=== PATIENT | male | born 1950 | race Caucasian/White ===

== ENCOUNTER → 2020-11-21 10:13 | Outpatient (BNVA) | payer MEDICARE, BC, SELFPAY | PROVIDERS: PCP Family Medicine; Visit Provider Urology | DX: Z20.828 Contact with and (suspected) exposure to other viral communicable diseases (principal); D49.4 Neoplasm of unspecified behavior of bladder | CPT/HCPCS: 87635 ==

== ENCOUNTER 2020-11-28 16:31 | Observation (INO) | payer MEDICARE, BC, SELFPAY ==
[2020-11-27 17:02] VITALS: BMI 24.7
[2020-11-28] VITALS (12 sets, daily range): BP systolic 125–172; BP diastolic 53–105; PULSE 60–101; RESP 16–22; TEMP 36.1–36.7; O2SAT 93–100
--- NOTE | 2020-11-28 | SCC_ITS ---
Procedure Done: 1. Cystoscopy, transurethral section of bladder tumor large 2. Right ureteral stent placement (7 Albanian by 28 cm double-pigtail without string) 3. Right retrograde ureteropyelogram 18.5 seconds of fluoroscopic guidance, for a cumulative dose of 4.32 mGy, was provided to Dr. Mitchell by the radiology department. C-arm images of the abdomen were saved for the patient's permanent record. ARIAN
--- NOTE | 2020-11-28 12:56 | XR_ITS ---
WS: [id number] Chest 2 views, 11/28/2020 Clinical Data: Newly diagnosed bladder cancer Comparison: None. Findings: No nodules, masses or effusions are seen. The heart is normal. The pulmonary vascularity is not increased. No pneumonia or pneumothorax is seen. The aortic arch is minimally tortuous and calci fic. XR/XR chest 2V* 85132 Impression: Atherosclerosis.
[2020-11-28 14:09] LABS: Basophils # 0.1 10^3/uL (0.0-0.1); Basophils % 1.4 %; Eosinophils # 0.1 10^3/uL (0.0-0.8); Eosinophils % 2.7 %; Hematocrit 43.3 % (42.0-52.0); Hemoglobin 13.7 g/dL (11.7-16.6); Lymphocytes # 1.8 10^3/uL (0.8-4.8); Lymphocytes % 34.5 %; Mean Corpuscular HGB Conc 31.6 g/dL (30.0-36.0); Mean Corpuscular Hemoglobin 28.3 pg (28.0-34.0); Mean Corpuscular Volume 89.5 fL (80-94); Mean Platelet Volume 9.4 fL (7.4-10.4); Monocytes # 0.4 10^3/uL (0.2-0.9); Monocytes % 8.2 %; Nucleated Red Blood Cells % 0 %; Platelet Count 200 10^3/cmm (130-400); Red Blood Count 4.84 10^6/uL (4.1-5.3); Red Cell Distribution Width 13.6 % (12.1-15.1); White Blood Count 5.1 10^3/uL (4.0-10.0)
[2020-11-28] MEDS: sodium chloride 0.9% 1,000 ML 30 ML IV (14:12)
[2020-11-28 14:28] LABS: Alanine Aminotransferase 17 U/L (0-41); Albumin Level 4.7 g/dL (3.5-5.2); Alkaline Phosphatase 74 IU/L (40-130); Blood Urea Nitrogen 16 mg/dL (8-23); Calcium 9.1 mg/dL (8.5-10.5); Carbon Dioxide 24 mmol/L (22-29); Chloride 102 mmol/L (98-107); Glucose 103 mg/dL (65-115); Osmolality Calculated 285 mOsm/kg (285-295); Sodium 137 mmol/L (136-145); Total Bilirubin 0.4 mg/dL (0.15-1.2); Total Protein 7.7 g/dL (6.6-8.7)
--- NOTE | 2020-11-28 14:53 | P.ANESASSM_ITS ---
Pre-Anesthetic Assessment Pre-Anesthetic Assessment: Height/Weight: Height 1.82 m Weight 81.647 kg Temp Pulse Resp BP Pulse Ox 97 F L 81 18 160/65 95 11/28/20 13:34 11/28/20 13:34 11/28/20 13:34 11/28/20 13:34 11/28/20 13:34 Preop Diagnosis: Newly diagnosed bladder cancer Proposed Procedure: Operation Date: 11/28/20 14:20 Proposed Procedures p Transurethral Resection Bladder Tumor 64883 C67.0(Not Applicable) - Lucas Rossi MD s Cystoscopy(Not Applicable) - Lucas Rossi MD Was Beta Ajay taken within 24 hours: N/A Last intake: Intake Last Liquid Date 11/27/20 Last Solid Date 11/27/20 Social: Social History: No alcohol and No tobacco Exam: Pre-Anes Outpt Exam: alert, oriented x 3, clear to auscultation bilate rally and regular rate & rhythm Airway: Submandibular: WNL Cervical ROM: WNL MP: 2 Dentition: Full Pulmonary: Pulmonary: COPD Comments: h/o smoking GI: GI: GERD Anesthetic Plan: ASA status: 3 Anesthesia: General Risk of > 500 ml blood loss (7ml/kg in children): No Meds/Allergies Current Medications: Current Medications Generic Name Dose Route Start Last Admin Trade Name Freq PRN Reason Stop Dose Admin Sodium Chloride 1,000 mls @ 30 ml s/hr 11/28/20 13:00 11/28/20 14:12 Sodium Chloride 0.9% IV 11/29/20 12:59 30 mls/hr .Q24H CHRIS Administration PFSH Anesthesia PFSH: Medical History Arthritis Cancer of trigone of urinary bladder Chronic GERD Hypercholesterolemia Family History Father , at age 79 CHF (congestive heart failure) Mother , at age 92 Heart disease Social History Smoking and tobacco status: former smoker Alcohol intake: never Marital status: Current occupational status: retired History of recent travel: No Data Anesthesia CBC & Chem 7: 11/28/20 13:40 11/28/20 13:40 Other Labs: Laboratory Results - last 48 hr 11/28/20 11/28/20 13:40 13:40 WBC 5.1 RBC 4.84 Hgb 13.7 Hct 43.3 MCV 89.5 MCH 28.3 MCHC 31.6 RDW 13.6 Plt Count 200 MPV 9.4 Neut % (Auto) 53.0 Lymph % (Auto) 34.5 [place] % (Auto) 8.2 Eos % (Auto) 2.7 Baso % (Auto) 1.4 Neut # (Auto) 2.70 Lymph # (Auto) 1.8 [place] # (Auto) 0.4 Eos # (Auto) 0.1 Baso # (Auto) 0.1 Nucleated RBC % (auto) 0 Nucleated RBCs # 0.0 Sodium 137 Chloride 102 Carbon Dioxide 24 BUN 16 Creatinine 1.2 GFR Calculation Not Reportable Glucose 103 Calculated Osmolality 285 Calcium 9.1 Total Bilirubin 0.4 ALT 17 Alkaline Phosphatase 74 Total Protein 7.7 Albumin 4.7 Globulin 3.0 Cardiac Studies: No Data to Display
--- NOTE | 2020-11-28 14:57 | P.HPUD_ITS ---
Surgery/Procedure H&P Update DATE OF PROCEDURE: November 28, 2020 DATE H&P PERFORMED: 11/07/21 H&P UPDATE INFORMATION: I have reviewed H&P completed within last 30 days, I have examined patient prior to procedure, No changes to prior documentation and H&P is in [facility] EMR on date indicated PREOP DIAGNOSIS: Newly diagnosed bladder cancer PLANNED PROCEDURE: Operation Date: 11/28/20 14:20 Proposed Procedures p Transurethral Resection Bladder Tumor 74043 C67.0(Not Applicable) - Lucas Rossi MD s Cystoscopy(Not Applicable) - Lucas Rossi MD
[2020-11-28] MEDS: lidocaine 2% Urojet 20 mL XX (15:16)
[2020-11-28 15:53] LABS: Anion Gap 15.7 (5-19); Aspartate Amino Transferase 29 U/L (0-40); Potassium 4.7 mmol/L (3.5-5.1)
--- NOTE | 2020-11-28 16:13 | SC_ITS ---
WS: [id number] C-arm fluoroscopy of the left side of the abdomen for retrograde pyelogram, 11/28/2020 Clinical Data: retrograde Comparison: None. Findings: A retrograde pyelogram was performed by Dr. Rossi. SC/C-arm [place] for Urology Impression: Left retrograde pyelogram.
[2020-11-28] MEDS: iohexol 300 mg/mL 50 mL Btl XX (16:15)
--- NOTE | 2020-11-28 16:32 | PM.OP ---
Operative Report Date of procedure: November 28, 2020 Pre-op Diagnosis: Newly diagnosed bladder cancer Post-op diagnosis: same Procedure Done: 1. Cystoscopy, transurethral section of bladder tumor large 2. Right ureteral stent placement (7 Salvadorean by 28 cm double-pigtail without string) 3. 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 >5 cm diameter resected/fulgurated. Condition: stable Disposition: PACU Brief History: Link is a very pleasant 70-year-old white male recently diagnosed during work-up for gross hematuria with papillary transitional cell carcinoma involving the left lateral wall and left trigone. The right ureteral orifice could be identified is normal the left was not seen and appeared to be underneath the tumor. No renal colicky type symptoms. Admitted for TURBT. Procedure: After routine preoperative evaluation examination and obtaining of informed consent he was taken to the operating suite on 11/28/2020 where general anesthesia was administered without difficulty after appropriate timeout was performed, SCDs confirmed to be functioning, preoperative antibiotics administered, beta-graeme protocol confirmed. Prepped and draped in the usual sterile fashion in dorsolithotomy position paying careful attention to avoiding pressure points. 21 Salvadorean cystoscope with 30 degree lens was introduced into the urethra meatus and advanced into the bladder under videoscopy. The bladder was systematically examined. Findings described above. The right ureteral orifice was somewhat laterally displaced with a fishmouth type appearance the left ureteral orifice could not be seen and appeared to be located underneath the tumor. The urethra was then calibrated with Slava sounds and easily accommodated 30 Salvadorean. 2% lidocaine jelly was instilled into the urethra and a 25 Salvadorean continuous-flow resectoscope sheath with visual obturator in place was advanced into the bladder without difficulty. The gyrus bipolar system with cutting loop was utilized for tumor resection. All visible tumor was resected deeply into the bladder wall. The left ureteral orifice was not readily identified. Cauterization was not utilized until the left ureteral orifice was finally identified after injection of indigo carmine intravenously along with Lasix showed some blue staining of the left lateral wall. A flexible tip guidewire was then passed through the cystoscope and the area of blue staining was probed with the wire in the ureteral orifice was identified with efflux of blue contrast. The wire was advanced and under fluoroscopic guidance appear to be in the appropriate position for the ureter and renal pelvis. A open-ended ureteral catheter was then advanced over the guidewire and the guidewire removed and contrast was injected and fluoroscopy revealed intraluminal normal placement with some mild dilation. The guidewire was replaced through the ureteral catheter and the catheter was removed. A 7 Salvadorean by 28 cm double-pigtail stent without string was advanced over the guidewire through the cystoscope into appropriate position as confirmed via fluoroscopy and cystoscopy. Ureteral stent was confirmed to be draining appropriately. The Bugbee cautery probe was then utilized to fulgurate few small areas of oozing from the resection site and after confirmation of meticulous hemostasis of the procedure was completed. Bladder drained with a 20 Salvadorean three-way Robledo catheter 30 in the balloon. Light CBI was initiated and urine remained clear. Tolerated procedure well without complications and awakened in the operating room and returned to the care of room in stable condition. PLANS: 1. Admit to observation status on the floor 2. Intravesical mitomycin tomorrow morning 3. Anticipate discharge with Robledo catheter and for assistance with healing and removal with voiding trial in the office next week.
[2020-11-28] MEDS: meperidine 50 mg/mL INJ 12.5 MG IVP (16:35)
--- NOTE | 2020-11-28 16:52 | SUR.PHASEI ---
PT RESTING QUIETLY WITH GOOD RESP NOTED PT STILL SHIVERS OFF AND ON BUT IS MOSTLY QUIET SEE EARLIER MED GIVEN FOR URGENCY AND SHIVERING WARM BLANKETS GIVEN X 3 TO PT ON ADMIT. GOLDSMITH IS 3 WAY WITH CONTINOUS NS CBI AT MOD RATE URINE IS BLUE IN BAG AND LT PINK IN TUBING.
--- NOTE | 2020-11-28 17:07 | ANE.PACU2 ---
Inpatient post-anesthesia follow up: Airway intact: Yes Vital signs: Temperature 98.1 F Pulse Rate 65 Respiratory Rate 16 Blood Pressure 161/56 Pulse Oximetry 96 Oxygen Delivery Me thod Room Air Oxygen Flow Rate 8 Fraction of Inspir ed Oxygen Hydration adequate: Yes Nausea and vomiting: No Pain level: 2 Mental status: Baseline
[2020-11-28] MEDS: tamsulosin 0.4 mg Capsule PO (18:05)
[2020-11-28] MEDS: gabapentin 300 mg Capsule 600 MG PO ×2 (18:05→21:18)
[2020-11-28] MEDS: HYDROcodone-acetaminophen 10-325 mg Tablet 1 TAB PO (18:05)
[2020-11-29] VITALS: BP 161/67; PULSE 71; RESP 16; TEMP 36.5; O2SAT 92
[2020-11-29] MEDS: HYDROcodone-acetaminophen 10-325 mg Tablet 1 TAB PO (02:43)
[2020-11-29 04:00] VITALS: BP 170/71; PULSE 71; RESP 16; TEMP 37; O2SAT 94
--- NOTE | 2020-11-29 06:47 | PC.NURSE ---
THROUGHOUT THE SHIFT THE FLOW OF THE CBI WAS TITRATED ACCORDING TO THE APPEARANCE OF THE GOLDSMITH BAG CONTENTS. FOR THE MAJORITY THE CONTENTS WERE A LIGHT PINK TO PINK/YELLOW COLOR. THE PATIENT DENIED PAIN, EXCEPT C/O PRESSURE X1.
[2020-11-29 07:08] VITALS: BP 158/88; PULSE 68; RESP 16; TEMP 36.5; O2SAT 94
--- NOTE | 2020-11-29 07:32 | P.DS_ITS ---
Discharge Providers Date of Admission: 11/28/20 16:31 Date of Discharge: November 29, 2020 Attending Provider at Admission: Lucas Rossi MD Attending Provider at Discharge: Lucas Rossi MD Primary Care Provider: Abhinav Torresno Diagnoses at Discharge Discharge Diagnosis (1) Cancer of trigone of urinary bladder: Status: Acute (2) Hydronephrosis, left: Status: Acute (3) Retained ureteral stent: Status: Acute Reason for Visit Reason for Visit: cystoscopy Hospital Course Hospital Course He was admitted on the day of the procedure which went well. He had a large papillary tumor involving the left ureteral orifice which was resected. A stent was left indwelling to allow appropriate healing. On postoperative day #1 he underwent mitomycin instillation into the bladder for 1 hour and it was drained. Urine cleared appropriately and he was discharged later that morning with Robledo catheter remaining in place to facilitate further healing and plans to remove the catheter the following week. Discharged in stable condition. Physical Exam Const: COMMON NORMALS: no acute distress and alert Resp: COMMON NORMALS: normal respiratory effort EFFORT & INSPECTION: No tachypneic and No respiratory distress : BLADDER/KIDNEY EXAM: Yes bladder normal to palpation PENIS: normal penis MEATUS: meatus normal Neuro: SENSORIUM/ORIENTATION: Yes alert Psych: COMMON NORMALS: mental status grossly normal, Normal thought process present and cooperative ATTITUDE: Yes calm and Yes engaged THOUGHT PROCESS: Normal thought process present Urinary Catheter Management^: 3-way Urethral CBI: Cath Placed During This Visit: yes Reason for Continuing Indwelling Catheter: Accurate Measurement of Urinary Ou tput in Critically Ill Patients Urinary Catheter Date of Insertion: 11/28/20 Urinary Catheter Time of Insertion: 16:00 Discharge Data Data Completed and Pending: Completed Studies During Hospitalization Category Date Time Status XR chest 2V* 7104 6 Routine Exams 11/28/20 12:56 Completed Pending at discharge Category Date Time Status Pathology: Surgic al [PTH] Routine Pth 11/28/20 16:32 Ordered Labs from last 24 hours 11/28/20 11/28/20 13:40 13:40 WBC 5.1 RBC 4.84 Hgb 13.7 Hct 43.3 MCV 89.5 MCH 28.3 MCHC 31.6 RDW 13.6 Plt Count 200 MPV 9.4 Neut % (Auto) 53.0 Lymph % (Auto) 34.5 [place] % (Auto) 8.2 Eos % (Auto) 2.7 Baso % (Auto) 1.4 Neut # (Auto) 2.70 Lymph # (Auto) 1.8 [place] # (Auto) 0.4 Eos # (Auto) 0.1 Baso # (Auto) 0.1 Nucleated RBC % (a uto) 0 Nucleated RBCs # 0.0 Sodium 137 Potassium 4.7 Chloride 102 Carbon Dioxide 24 Anion Gap 15.7 BUN 16 Creatinine 1.2 GFR Calculation Not Reportable Glucose 103 Calculated Osmolal ity 285 Calcium 9.1 Total Bilirubin 0.4 AST 29 ALT 17 Alkaline Phosphata se 74 Total Protein 7.7 Albumin 4.7 Globulin 3.0 Procedures Performed: Intravesical mitomycin instilled into the bladder on postop day #1 Vitals: Last Vital Signs Temp 97.7 F 11/29/20 07:08 Pulse 68 11/29/20 07:08 Resp 16 11/29/20 07:08 BP 158/88 11/29/20 07:08 Pulse Ox 94 11/29/20 07:08 Discharge Plan Discharge Patient Disposition: Home Condition: Stable Prescriptions: Continued sertraline 100 mg tablet 100 mg PO DAILY RF: 0 lovastatin 40 mg tablet 40 mg PO DAILY RF: 0 gabapentin 300 mg capsule 600 mg PO TID RF: 0 hydrocodone-acetaminophen 10-325 mg tablet 1 tab PO BID PRN (Reason: pain) RF: 0 tamsulosin 0.4 mg capsule 0.4 mg PO BID RF: 0 omeprazole 40 mg capsule,delayed release(DR/EC) 40 mg PO DAILY RF: 0 Held meloxicam 15 mg tablet 15 mg PO DAILY RF: 0 Hold Instructions: Resume on 12/06/20. Discharge Orders: Discharge Order (Routine); Ordered 11/29/20 Ordered By: Lucas Rossi Referrals: Lucas Rossi MD [Physician] - 12/03/20 11:00 am Discharge Diet: Usual diet Discharge Activity: Limit activity as instructed Patient Instructions: Cystoscopy, Robledo Catheter Care, Transurethral Resection of Bladder Tumors (DC), Ureteral Stent Placement (DC), Urinary Leg Bag (GEN) Activity Restrictions/Additional Instructions: 1. No lifting >10 pounds for 3 weeks 2. We will remove the catheter in my office on Wednesday the . 3. You have a ureteral stent in the left kidney which will allow the tube where it drains into the bladder to heal. We will probably leave that in for 2 to 3 weeks for that purpose. 4. He can use a leg bag and night bag to drain the Robledo catheter until you return to clinic for catheter removal. At that visit we will train you on how to self catheterize to avoid over distention of your bladder. Discharge Attestations Time Spent in Discharge Care*: greater than 30 min Quality Metrics Clinical Quality Measures During this hospital stay, did patient experience: None Coding Level of Care Code Acute Community Marketing Coordinator for Lisa Fwd Exam Expanded Problem Focused Diagnoses Cancer of trigone of urinary bladder C67.0 Hydronephrosis, left N13.30 Retained ureteral stent Z96.0
[2020-11-29] MEDS: gabapentin 300 mg Capsule 600 MG PO (08:11)
[2020-11-29] MEDS: pantoprazole DR 40 mg Tablet PO (08:11)
[2020-11-29] MEDS: tamsulosin 0.4 mg Capsule PO (08:11)
[2020-11-29] MEDS: atorvastatin 40 mg Tablet 20 MG PO (08:11)
--- NOTE | 2020-11-29 11:16 | PC.CHAP ---
Pastoral Care Encounter/Spiritual Assessment Type of Contact [] Declined superintendent measurement visit [] Patient/Family/Request visit [] Outpatient visit [] Follow-up visit [] Physician referral [] Code/Alert [xx] Routine visit [] Staff referral [] Actively dying [] Patient sleeping [] Family support [] [] Out of room [] Palliative care [] [] Receiving care in room [] Pre-surgical visit [] Trauma [] Long length of stay [] ICU visit [] Other: Relational/Emotional Strength [xx] Patient feels connected with others/family/visitors/staff [] Distress [] Loneliness/isolation [] Abandonment Spirituality of Patient [] Person of Hannah [] Attends Moravian of their Hannah [xx] Believes in Prayer [xx] Reads Bible or Confucianist materials [] There are Spiritual issues to be addressed Wet Cleaner Machine Interventions [xx] Prayer [xx] Active listening [xx] Non-anxious presence [] Spiritual/emotional support [] Crisis/trauma care [] Spiritual counseling [] Bereavement support [] Provided bereavement packet [xx] Provided Bible/devotional materials [] Provided toy/stuffed animal, coloring book to patient or family member [] Provided Communion [] Anointing/[place] [] Salvation [xx] Completed spiritual assessment [] Other: Impact on Illness or Injury [] Angry [] Fearful [] Anxious [] Often cries [] Exhaustion [] Unable to work [] Unable to attend caodaism [] Unable to walk/stand [] Unable to read [] Unable to drive [] Unable to eat/drink [] Unable to sleep [] Unable to be with family [] Patient intubated [] Other: Summary Patient being discharged. He accepted [employer] devotional to take home. Time spent with patient 4 minutes
[2020-11-29 12:41] VITALS: BP 158/88; PULSE 68; RESP 16; TEMP 36.5; O2SAT 94
== END 2020-11-29 11:00 | disposition home or self-care (01) ==
LOC: MEDSURG 16:31
PROVIDERS: Admitting Provider Urology; PCP Family Medicine; Visit Provider Urology
PROC: 0TBB8ZZ Excision of Bladder, Via Natural or Artificial Opening Endoscopic (ICD-10-PCS; CPT 52240; principal; 2020-11-28 14:20)
PROC: 0TJB8ZZ Inspection of Bladder, Via Natural or Artificial Opening Endoscopic (ICD-10-PCS; CPT 52000; 2020-11-28 14:20)
PROC: (CPT 74420; 2020-11-28 14:20)
DX: C67.0 Malignant neoplasm of trigone of bladder (principal); N13.30 Unspecified hydronephrosis; J44.9 Chronic obstructive pulmonary disease, unspecified; Z87.891 Personal history of nicotine dependence; K21.9 Gastro-esophageal reflux disease without esophagitis; M19.90 Unspecified osteoarthritis, unspecified site; E78.00 Pure hypercholesterolemia, unspecified; Z82.49 Family history of ischemic heart disease and other diseases of the circulatory system
CPT/HCPCS: 51720; 52240; 52332; 12345; 36415; 71046; 76000; 80053; 85025; 88305; G0378; J0690; J1940; J2175; J2704; J2710; J3010; J3490; J7030; J9280; Q9967

== ENCOUNTER 2020-12-13 09:54 | Outpatient (CLI) | payer MEDICARE, BC, SELFPAY ==
--- NOTE | 2020-12-13 10:00 | CT_ITS ---
WS: [id number] CT ABDOMEN PELVIS TECHNIQUE: Noncontrast CT of the abdomen and contrast-enhanced CT of the abdomen and pelvis with edvin nal and sagittal reformatted images. CLINICAL INFORMATION: CANCER OF TRIGONE OF URINARY BLADDER COMPARISON: November 06, 2020 DLP: 1046.[address] scans at [facility] use at least one of these dose optimization techniques: automat ed exposure control; mA and/or kV adjustment per patient size (includes targeted exams where dose is matched to clinical indication); or iterative reconstruction. FINDINGS:Adrenal glands are normal. Normal renal parenchymal enhancement. No hydronephrosis. Left heather ble-J ureteral stent. Left eccentric bladder wall thickening with recent bladder surgery. Previous de scribed polypoid lesions no longer visualized. No new or recurrent enhancing polypoid bladder lesions . Prostate measures 3.1 x 5.0 CM. Fibrotic opacity right lower lobe medially unchanged since November 06, 2020 measuring 9 mm. Lung bas es are otherwise well aerated. Mild diffuse fatty infiltration of the liver. Portal vein and splenic vein are normal. Normal gallbladder. Normal GE junction. Normal spleen. Mild fatty atrophy of the oswald creas Normal caliber abdominal aorta. Aortic calcification. Sigmoid diverticuli. No evidence of acute diver ticulitis. No periaortic or retroperitoneal lymphadenopathy. No inguinal lymphadenopathy. Moderate spondylitic c hanges lumbar spine. CT/CT abdomen pelvis wo/w [id number] IMPRESSION: 1. Left double-J ureteral stent in good position. No hydronephrosis. 2. Normal bilateral renal [place] enhancement. 3. Mild left eccentric bladder wall thickening. The previously described enhan cing polypoid lesions appear to have been resected. No new polypoid lesions. 4. Mild diffuse fatty infiltration of the liver. 5. Stable fibrotic opacity right lower lobe medially measuring 9 mm. Recommend 3 month follow-up. 6. No abdominal or pelvic lymphadenopathy.
[2020-12-13] MEDS: iodixanol 320 mg/mL 100mL Btl IV (10:25)
== END 2020-12-13 09:55 | disposition home or self-care (01) ==
LOC: RAD 10:03
PROVIDERS: PCP Family Medicine; Visit Provider Urology
DX: C67.0 Malignant neoplasm of trigone of bladder (principal); Z96.0 Presence of urogenital implants; K76.0 Fatty (change of) liver, not elsewhere classified
CPT/HCPCS: 74178

== ENCOUNTER → 2020-12-17 08:54 | Outpatient (BNVA) | payer MEDICARE, BC, SELFPAY | PROVIDERS: PCP Family Medicine; Visit Provider Urology | DX: C67.0 Malignant neoplasm of trigone of bladder (principal); N13.30 Unspecified hydronephrosis | CPT/HCPCS: 81003 ==

== ENCOUNTER 2020-12-23 10:10 | Outpatient (CLI) | payer MEDICARE, BC, SELFPAY ==
[2020-12-23 12:12] LABS: Basophils # 0.1 10^3/uL (0.0-0.1); Basophils % 1.2 %; Eosinophils # 0.2 10^3/uL (0.0-0.8); Eosinophils % 4.9 %; Hemoglobin 13.1 g/dL (11.7-16.6); Lymphocytes # 1.7 10^3/uL (0.8-4.8); Lymphocytes % 34.3 %; Mean Corpuscular HGB Conc 31.2 g/dL (30.0-36.0); Mean Corpuscular Volume 89.7 fL (80-94); Mean Platelet Volume 9.3 fL (7.4-10.4); Monocytes # 0.4 10^3/uL (0.2-0.9); Monocytes % 8.5 %; Neutrophils # 2.51 10^3/uL (1.8-7.7); Neutrophils % 50.9 %; Nucleated Red Blood Cells % 0 %; Platelet Count 195 10^3/cmm (130-400); Red Blood Count 4.68 10^6/uL (4.1-5.3); Red Cell Distribution Width 13.6 % (12.1-15.1); White Blood Count 4.9 10^3/uL (4.0-10.0)
[2020-12-23 12:30] LABS: Alanine Aminotransferase 15 U/L (0-41); Albumin Level 4.4 g/dL (3.5-5.2); Alkaline Phosphatase 71 IU/L (40-130); Anion Gap 10.7 (5-19); Aspartate Amino Transferase 19 U/L (0-40); Blood Urea Nitrogen 13 mg/dL (8-23); Calcium 8.8 mg/dL (8.5-10.5); Carbon Dioxide 27 mmol/L (22-29); Chloride 105 mmol/L (98-107); Globulin 2.7 g/dL (1.3-4.6); Glucose 109 mg/dL (65-115); Osmolality Calculated 289 mOsm/kg (285-295); Potassium 3.7 mmol/L (3.5-5.1); Sodium 139 mmol/L (136-145); Total Bilirubin 0.3 mg/dL (0.15-1.2); Total Protein 7.1 g/dL (6.6-8.7)
--- NOTE | 2020-12-23 14:37 | ONC CON_ITS ---
Dr. Art New Patient Note Patient: Link Rollins Unit #: [id number]: [id number] Dicatated By: Kriss Art M.D.Date of Visit: Dec 23, 2020 Onc MED New Patient/Consult Referring Physician: Rj Watters History of Present Illness: Mr. Link Fink, is a 70-year-old gentleman with history of hematuria, initially observed on a day before [place] eve, went to [facility] in [place], [place] CT scan of abdomen pelvis showed an enhancing mass in the left posterior aspect of urinary bladder consistent with bladder cancer, his CBC showed hemoglobin 13.6 and creatinine was 1.08 Subsequently, he was referred to urology, Dr. 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 Patient underwent CT scan of abdomen pelvis on December 13, 2020 which showed left double-J ureteral stent, no hydronephrosis mild left eccentric bladder wall thickening. Mild diffuse fatty infiltration of the liver. Stable fibrotic opacity right lower lobe of lung medially measuring 9 mm. Unchanged since November 06, 2020, no pelvic lymphadenopathy Past medical history significant for arthritis, chronic GERD, hypercholesterolemia, patient is a former smoker quit smoking 35 years ago denies alcohol use. , Complaining of off and on hematuria since underwent surgery for bladder cancer. Otherwise denies any fever chills denies any nausea or vomiting, about 10 pound weight loss due to poor appetite. No melena or hematochezia, no hemoptysis hematemesis, no jaundice, no bony pains, no dysuria.As per patient Dr. Centeno from [place], [place] called him on Wednesday and did discuss with him regarding treatment options which include radical cystectomy but prior to that he recommended chemotherapy. Past Medical History: Mr. King medical history consists of arthritis, gastroesophageal reflux disease, and hypercholesterolemia. Past Surgical History: Mr. King surgical/procedural history consists of transurethral destruction of bladder lesion. Medications: Daily Vitamin 1 Tablet Oral daily, Gabapentin 1 Capsule (of 300 mg) Oral t.i.d., HYDROcodone-Acetaminophen 1 Tablet (of 10-325 mg) Oral four times a day, Lovastatin 1 Tablet (of 40 mg) Oral daily, Meloxicam 1 Tablet (of 15 mg) Oral daily, Omeprazole 1 Capsule (of 40 mg) Capsule Delayed Release Oral daily, Sertraline HCl 1 Tablet (of 100 mg) Oral daily, Tamsulosin HCl 1 Capsule (of 0.4 mg) Oral b.i.d. Allergies: No Known Allergies. Social History: Mr. Rollins is . Mr. Rollins no longer smokes. He has no history of drinking. Family History: Mr. Rollins's mother at age 92: heart disease. Mr. Rollins's father at age 79: congestive heart failure. Review Of Symptoms: Constitutional - Appetite is good and weight is stable. No fever, night sweats, or hot flashes. Energy level is poor, ENMT - No sinus congestion/drainage. No mouth sores. No sore throat or difficulty swallowing, Hematologic/Lymphatic - No abnormal bruising or bleeding, Respiratory - No shortness of breath. No cough. No pleuritic pain or hemoptysis, Cardiovascular - No angina pain. No palpitations, Gastrointestinal - No nausea or vomiting. Positive for heartburn and acid reflux. No diarrhea or constipation. No blood in the stool or black stools, Genitourinary (M) - Positive for dysuria, no hematuria. Positive for urinary frequency. No urgency or incontinence, Musculoskeletal - Positive for joint and bone pain, Neurologic - No headache. Positive for dizziness. No numbness or tingling. No other focal neurologic symptoms, Psychiatric - No anxiety or depression. Positive for insomnia. Vital Signs: Most recent vitals are not available for this patient. Performance Status: 0 - Fully active, able to carry on all predisease activities without restrictions. (ECOG) Physical Examination: ENMT - No mouth sores, no thrush, no jaundice, Respiratory - Lungs are clear to auscultation, Cardiovascular - Regular rate and rhythm of heart, Abdomen - Soft, bowel sounds present, Extremities - No visible edema. Lab/Imaging: Most recent lab results are not available for this patient. Impression: Muscle invasive, high-grade urothelial carcinoma involving detrusor muscle, carcinoma in situ identified per TURBT done on November 28, 2020 CT scan of abdomen pelvis done on December 13, 2020 showed no abdominal or pelvic lymphadenopathy mild left central bladder wall thickening.Clinical stage T2or3,, NX, MX Stable fibrotic opacity right lower lobe of lung medially measuring 9 mm Arthritis GERD Plan: Discussed with patient regarding treatment options, which include neoadjuvant chemotherapy with dose dense MVAC 3-4 cycles followed by radical cystectomy or combined chemoradiation therapy as bladder preservation therapy, patient is less likely a candidate for bladder preservation because of left hydronephrosis at the time of diagnosis requiring stenting and high-grade urothelial carcinoma, multifocal disease, presence of DCIS, with all these features mentioned the standard of care for this patient would be neoadjuvant chemotherapy with dose dense MVAC with Neulasta support x3 followed by evaluation For radical cystectomy, patient and his agreed with the plan. At this point , we will obtain baseline CBC ,CMP, pretreatment echocardiogram, Port-A-Cath placement, all the side effect possible benefits associated with dose dense MVAC including but not limited to, bone marrow suppression, hair loss, nausea vomiting diarrhea, mouth sores, hepatic toxicity, bladder toxicity, peripheral neuropathy, cardiac toxicity were mentioned, further teaching will done by chemotherapy nurse, will obtain approval from his insurance prior to the treatment and then patient will return to clinic 1 week after first dose of MVAC with Neulasta support to prevent chemotherapy-induced neutropenia/leukopenia and to maintain chemotherapy schedule, with CBC CMP Signed By: Kriss Art M.D. <<Signature on File>>
== END 2020-12-23 10:11 | disposition home or self-care (01) ==
PROVIDERS: PCP Family Medicine; Visit Provider Internal Medicine Hematology & Oncology
DX: C67.0 Malignant neoplasm of trigone of bladder (principal); M19.90 Unspecified osteoarthritis, unspecified site; K21.9 Gastro-esophageal reflux disease without esophagitis
CPT/HCPCS: 80053; 85025; 99204

== ENCOUNTER 2021-01-09 08:05 | Outpatient (CLI) | payer MEDICARE, BC, SELFPAY ==
--- NOTE | 2021-01-09 08:14 | USCV_ITS ---
Link Rollins Age: 70 Gender: M : 1950 Exam Date: 01/09/2021 08:35 Ordering Phys: Kriss Art MD Technologist: Emilio Madrigal Exam Location: [facility] [place] Indication: HIGH RISK MED BP: 130 / 75 HR: 67 Rhythm: Sinus Technical Quality: Fair MEASUREMENTS (Male / Female) Normal Values 2D ECHO LV Diastolic Diameter PLAX 3.9 cm 4.2 - 5.9 / 3.9 - 5.3 cm LV Systolic Diameter PLAX 2.8 cm IVS Diastolic Thickness 1.6 cm 0.6 - 1.0 / 0.6 - 0.9 cm IVS Systolic Thickness 1.6 cm LVPW Diastolic Thickness 1.1 cm 0.6 - 1.0 / 0.6 - 0.9 cm LVPW Systolic Thickness 1.4 cm LVOT Diameter 2.1 cm LV Ejection Fraction 2D Teich 52.7 % LV Ejection Fraction MOD 2C 60.6 % LV Ejection Fraction 2C AL 59.4 % LA Diameter 4.0 cm LA Width 3.6 cm LA Height 4.1 cm RA Width 3.4 cm RA Height 4.8 cm Aorta at Sinotubular Diameter 3.1 cm M-MODE LV Diastolic Diameter MM 5.2 cm 4.2 - 5.9 / 3.9 - 5.3 cm LV Systolic Diameter MM 3.2 cm LV Ejection Fraction MM Teich 69.4 % IVS Diastolic Thickness MM 1.0 cm 0.6 - 1.0 / 0.6 - 0.9 cm IVS Systolic Thickness MM 1.6 cm LVPW Diastolic Thickness MM 1.1 cm 0.6 - 1.0 / 0.6 - 0.9 cm LVPW Systolic Thickness MM 2.1 cm RV Diastolic Diameter MM 2.5 cm Aortic Annulus Diameter 3.9 cm LA Ao Ratio MM 1.1 MV E Point Septal Separation 0.9 cm DOPPLER AV Peak Velocity 126.0 cm/s LVOT Peak Velocity 81.0 cm/s AV Area Cont Eq vti 2.4 cm squared AV Area Cont Eq pk 2.2 cm squared MV Area PHT 5.0 cm squared Mitral E to A Ratio 0.8 MV E' Velocity 59.0 cm/s TR Peak Velocity 173.0 cm/s TR Peak Gradient 12.0 mmHg TV Peak E Velocity 94.0 cm/s Right Atrial Pressure 3.0 mmHg Pulmonary Artery Systolic Pressu 15.0 mmHg PV Peak Velocity 104.0 cm/s FINDINGS Left Ventricle Normal left ventricular size, systolic function and wall thickness, with no regional wall motion abnormalities. Left ventricular ejection fraction is estimated at 60 %. Normal diastolic filling pattern. Right Ventricle Normal right ventricular size and systolic function. Right ventricular systolic pressure 15 mmHg. Right Atrium Normal right atrial size. Left Atrium Normal left atrial size. Mitral Valve Structurally normal mitral valve. No mitral valve stenosis. No mitral valve regurgitation. Aortic Valve Structurally normal trileaflet aortic valve. No aortic valve stenosis. No aortic valve regurgitation. Tricuspid Valve Structurally normal tricuspid valve. Trace tricuspid valve regurgitation. Pulmonic Valve Pulmonic valve not well visualized. Pericardium No pericardial effusion. Aorta Normal-sized aortic root. CONCLUSIONS 1. Normal left ventricular size, systolic function and wall thickness, with no regional wall motion abnormalities. Left ventricular ejection fraction is estimated at 60 %. Normal diastolic filling pattern. 2. Normal right ventricular size and systolic function. 3. Normal pulmonary artery pressure. 4. No significant valvular abnormality. 5. No prior similar studies to compare. Louise Gunter MD (Electronically Signed) Final Date: 13 January 2021 14:41 S
== END 2021-01-09 08:06 | disposition home or self-care (01) ==
LOC: US 08:06
PROVIDERS: PCP Family Medicine; Visit Provider Internal Medicine Hematology & Oncology
DX: Z79.899 Other long term (current) drug therapy (principal)
CPT/HCPCS: 93306

== ENCOUNTER → 2021-01-13 10:01 | Outpatient (BNVA) | payer MEDICARE, BC, SELFPAY | PROVIDERS: PCP Family Medicine; Visit Provider Surgery | DX: Z20.822 Contact with and (suspected) exposure to COVID-19 (principal); C67.0 Malignant neoplasm of trigone of bladder | CPT/HCPCS: 87635 ==

== ENCOUNTER 2021-01-20 07:39 | Day surgery (SDC) | payer MEDICARE, BC, SELFPAY ==
[2021-01-16 14:20] VITALS: BMI 23.6
--- NOTE | 2021-01-20 | SCC_ITS ---
Procedure Done: Placement of PowerPort via right subclavian vein. 46.0 seconds of fluoroscopic guidance, for a cumulative dose of 11.26 mGy, was provided to Dr. Hayes by the radiology department. C-arm images of the chest were saved for the patient's permanent record. [facility]
--- NOTE | 2021-01-20 07:46 | SC_ITS ---
WS: [id number] INTRAOPERATIVE TECHNIQUE: 2 Spot fluoroscopic images for intraoperative purposes. FLUOROSCOPY TIME: 46.0 seconds CLINICAL INFORMATION: Powerport Placement COMPARISON: None. FINDINGS: Right Port-A-Cath with tip in distal SVC. No visualized pneumothorax. SC/C-arm FL for CVA [id number] IMPRESSION: Images obtained for intraoperative purposes.
[2021-01-20] MEDS: sodium chloride 0.9% 1,000 ML 30 ML IV (08:27)
--- NOTE | 2021-01-20 08:37 | ANES.PREANE2 ---
Pre-Anesthetic Assessment Pre-Anesthetic Assessment: Height/Weight: Height 1.83 m Weight 78.925 kg Preop Diagnosis: Urinary bladder cancer Proposed Procedure: Operation Date: 01/20/21 09:20 Proposed Procedures p PLACEMENT OF PORT A CATH 58846 c67.0(Not Applicable) - Kun Hayes MD Was Beta Ajay taken within 24 hours: N/A Last intake: Intake Last Liquid Date 01/20/21 Last Liquid Time 06:00 Last Solid Date 01/19/21 Last Solid Time 21:00 Social: Social History: No alcohol and No tobacco Comment: h/o smoking Exam: Pre-Anes Outpt Exam: alert, oriented x 3, clear to auscultation bilaterally and regular rate & rhythm Airway: Submandibular: WNL Cervical ROM: WNL MP: 2 Dentition: Full Pulmonary: Pulmonary: COPD : Comments: Bladder tumor GI: GI: GERD Anesthetic Plan: ASA status: 3 Anesthesia: MAC Risk of > 500 ml blood loss (7ml/kg in children): No Meds/Allergies Current Medications: Current Medications Generic Name Dose Route Start Last Admin Trade Name Freq PRN Reason Stop Dose Admin Sodium Chloride 1,000 mls @ 30 ml s/hr 01/20/21 08:15 01/20/21 08:27 Sodium Chloride 0.9% IV 01/21/21 08:14 30 mls/hr .Q24H CHRIS Administration PFSH Anesthesia PFSH: Medical History Arthritis Cancer of trigone of urinary bladder Chronic GERD Hypercholesterolemia Surgical History H/O transurethral destruction of bladder lesion Family History Father , at age 79 CHF (congestive heart failure) Mother , at age 92 Heart disease Social History Smoking and tobacco status: former smoker Alcohol intake: never Marital status: Current occupational status: retired History of recent travel: No Data Anesthesia Cardiac Studies: No Data to Display
--- NOTE | 2021-01-20 09:45 | W.PM.OPSUD ---
Surgery/Procedure H&P Update DATE OF PROCEDURE: January 20, 2021 DATE H&P PERFORMED: 01/13/21 H&P UPDATE INFORMATION: I have reviewed H&P completed within last 30 days, I have examined patient prior to procedure and No changes to prior documentation PREOP DIAGNOSIS: Urinary bladder cancer PRIMARY INDICATION FOR PROCEDURE: THE SAME PLANNED PROCEDURE: Operation Date: 01/20/21 09:20 Proposed Procedures p PLACEMENT OF PORT A CATH 93010 c67.0(Not Applicable) - Kun Hayes MD
[2021-01-20] MEDS: lidocaine 2% INJ 20 mL INJECTION (10:25)
[2021-01-20] MEDS: heparin, porcine 1,000 unit/mL INJ 10 mL 10000 UNIT IRRIGATION (10:29)
--- NOTE | 2021-01-20 10:38 | PM.OP ---
Operative Report Date of procedure: January 20, 2021 Pre-op Diagnosis: Urinary bladder cancer Post-op diagnosis: same Post-op Findings: Normal anatomy of right subclavian vein Procedure Done: Placement of PowerPort via right subclavian vein. Interpretation of fluoroscopy was done by me through the whole entire procedure Implants: Right subclavian vein PowerPort Surgeon: Kun Hayes Community Coordinator For [employer] School: lighting technician Estela Circulating nurse Harmony Anesthesia: MAC (Emma Marroquin) Estimated blood loss (mL): 5 Condition: stable Disposition: same day Brief History: This is a pleasant 70 years old gentleman with history of bladder cancer requiring PowerPort for chemotherapy. . Plan of care; After thorough history physical examination and reviewing the chart and reviweing the images iwth my personal intrepretation.I counseled the patient for Port-A-Cath placement, indications, risks including pneumothorax that may require Chest tube(s) placement and potential injury of major vascular structures that may require Thoractomy, benefits,indications and alternatives were all discussed with the patient, patient understands and is interested to proceed. Rationale was carefully and clearly discussed with the patient.Appropriate informed consent have been reviewed and signed. Procedure: Patient was identified in the holding area and taken to the operative room and placed in supine position IV propofol was given by the anesthesia provider ,both arms were tucked,Time-out was done verifying the patient's name/date of /planned procedure and destination after the procedure, all were in agreement. SCDs confirmed to be functioning, preoperative antibiotics administered per protocol, and beta graeme protocol was confirmed, appropriate positioning of the patient was done by me. Medications were reviewed to assess for anticoagulant usage. Risks and benefits and prevention of central line associated blood stream infection (CLABSI) were discussed with the patient/CPOA, and a consent was obtained. Monitors were in place and monitored throughout the procedure. All necessary supplies were available prior to start. Hand hygiene was completed prior to starting. Maximum barrier technique was utilized including a sterile gown, sterile gloves with a hat and mask. Site was was prepped with [chlorhexidine] and a full body drape was placed. 5 mL of 2% lidocaine was injected into the skin with a 25 gauge needle. Prep& drape was done under the usual sterile technique, lidocaine 2% was injected at the site of the stick, started by Right subclavian stick that retrieved venous blood was obtained from the first stick, a guidewire was then threaded and under the guidance of fluoroscopy position was confirmed to be in the IVC and my interpretation, there was no PVC changes, at that point the guidewire was secured to the drapes with a hemostat and the needle was taken out, attention was then deviated towards creation of a pocket for the port were lidocaine 2% was injected using an 15 blade knife skin incision was created dissection using the Bovie to create a pocket for the Port-A-Cath to be accommodated, hemostasis was secured, after the port being appropriately flushed it was inserted into the pocket and a tunneler was used to accommodate the catheter of the port cath to be delivered through the incision first created at the site of the stick, at that point under fluoroscopy an estimated length was measured for the catheter and was cut at the designed level, followed by that a dilator with the sheath introduced onto the guidewire the dilator and the wire were retrieved and the catheter of the port was introduced via the sheath where it was peeled off and the catheter maintained to be in the SVC that was confirmed with fluoroscopy, and the fluoroscopy interpretation was done by me throughout the entire procedure. The port was kept in place 3-0 Vicryl deep subdermal interrupted sutures, skin was then closed by 4-0 Monocryl as subcuticular closure. The stick site was closed by 3-0 Vicryl and surgical glue was used followed by dressing. Patient tolerated the procedure well was taken to the recovery area Count was correct at the end of the procedure. I was present for the whole entire procedure Position of the catheter was checked with a postoperative chest x-ray and it was in good position without evidence of pneumothorax
--- NOTE | 2021-01-20 10:42 | XRR_ITS ---
PROCEDURE INFORMATION: Exam: XR Chest Exam date and time: 01/20/2021 10:44 AM Age: 70 years old Clinical indication: Other vascular access device placement or adjustment; Port; Additional info: Status post right subclavian powerport placement TECHNIQUE: Imaging protocol: XR of the chest Views: Frontal portable upright view of the chest. COMPARISON: CR XR chest 2V* [id number] 11/28/2020 1:27 PM FINDINGS: Lungs: Lateral left mid lung zone subsegmental atelectasis. The lungs are otherwise peripherally clear bilaterally. The pulmonary vasculature is normal. Pleural spaces: No pleural effusion. No pneumothorax. Heart/Mediastinum: The heart is normal in size and contour. Mediastinum: Stable. Vasculature: Moderate aortic arch atherosclerotic calcification without ectasia. Diaphragm: The right hemidiaphragm remains mildly elevated. Bones/joints: Right lateral predominate vertebral body marginal osteophytes are noted at multiple thoracic spinal levels. XR/XR chest 1V portable [id number] IMPRESSION: Lateral left mid lung zone subsegmental atelectasis.
[2021-01-20 10:43] VITALS: BP 98/59; PULSE 74; RESP 18; TEMP 36.2; O2SAT 96
[2021-01-20 10:50] VITALS: BP 130/71; PULSE 75; RESP 18; TEMP 36.4; O2SAT 96
[2021-01-20 10:55] VITALS: BP 123/57; PULSE 67; RESP 16; TEMP 36.4; O2SAT 96
[2021-01-20 11:01] VITALS: BP 130/65; PULSE 68; RESP 18; TEMP 36.2; O2SAT 94
[2021-01-20 11:21] VITALS: BP 135/67; PULSE 63; RESP 18; TEMP 36.6; O2SAT 95
--- NOTE | 2021-01-20 12:29 | ANE.PACU2 ---
Inpatient post-anesthesia follow up: Airway intact: Yes Vital signs: Temperature 97.8 F Pulse Rate 63 Respiratory Rate 18 Blood Pressure 135/67 Pulse Oximetry 95 Oxygen Delivery Me thod Simple Mask Oxygen Flow Rate Fraction of Inspir ed Oxygen Hydration adequate: Yes Nausea and vomiting: No Pain level: 2 Mental status: Baseline
== END 2021-01-20 11:40 | disposition home or self-care (01) ==
PROVIDERS: PCP Family Medicine; Visit Provider Surgery
PROC: (CPT 36561; principal; 2021-01-20 09:20)
DX: C67.0 Malignant neoplasm of trigone of bladder (principal); J44.9 Chronic obstructive pulmonary disease, unspecified; K21.9 Gastro-esophageal reflux disease without esophagitis; M19.90 Unspecified osteoarthritis, unspecified site; E78.00 Pure hypercholesterolemia, unspecified
CPT/HCPCS: 36561; 71045; 77001; C1788; J0690; J1644; J2250; J2704; J7030

== ENCOUNTER 2021-01-27 07:57 | Outpatient (CLI) | payer MEDICARE, BC, SELFPAY ==
[2021-01-27 08:53] LABS: Basophils # 0.1 10^3/uL (0.0-0.1); Eosinophils # 0.1 10^3/uL (0.0-0.8); Eosinophils % 2.9 %; Hemoglobin 13.2 g/dL (11.7-16.6); Lymphocytes # 1.9 10^3/uL (0.8-4.8); Lymphocytes % 39.4 %; Mean Corpuscular HGB Conc 31.4 g/dL (30.0-36.0); Mean Corpuscular Hemoglobin 28.7 pg (28.0-34.0); Mean Corpuscular Volume 91.3 fL (80-94); Mean Platelet Volume 9.2 fL (7.4-10.4); Monocytes # 0.6 10^3/uL (0.2-0.9); Monocytes % 11.4 %; Neutrophils # 2.16 10^3/uL (1.8-7.7); Neutrophils % 44.9 %; Nucleated Red Blood Cells % 0 %; Platelet Count 173 10^3/cmm (130-400); Red Cell Distribution Width 14.1 % (12.1-15.1); White Blood Count 4.8 10^3/uL (4.0-10.0)
[2021-01-27 09:20] LABS: Alanine Aminotransferase 15 U/L (0-41); Albumin Level 4.5 g/dL (3.5-5.2); Alkaline Phosphatase 67 IU/L (40-130); Anion Gap 15.8 (5-19); Aspartate Amino Transferase 18 U/L (0-40); Blood Urea Nitrogen 18 mg/dL (8-23); Carbon Dioxide 23 mmol/L (22-29); Chloride 101 mmol/L (98-107); Globulin 2.8 g/dL (1.3-4.6); Glucose 98 mg/dL (65-115); Osmolality Calculated 284 mOsm/kg (285-295); Potassium 3.8 mmol/L (3.5-5.1); Sodium 136 mmol/L (136-145); Total Bilirubin 0.3 mg/dL (0.15-1.2); Total Protein 7.3 g/dL (6.6-8.7)
[2021-01-27] MEDS: sodium chloride 0.9% 250 ML IV (09:30)
[2021-01-27] MEDS: famotidine 20 mg/2 mL INJ IVP (10:57)
[2021-01-27] MEDS: diphenhydrAMINE 50 mg/mL SDV 1mL 25 MG IVP (10:59)
[2021-01-27] MEDS: fosaprepitant 150 MG in sodium chloride 0.9% 150 ML 300 MG IV (11:00)
[2021-01-27] MEDS: palonosetron 0.25 mg/5 mL SDV IVP (11:25)
[2021-01-27] MEDS: vinBLAStine 6 MG in sodium chloride 0.9% 50 ML 200 MG IV (13:36)
[2021-01-27] MEDS: FUROsemide 10 mg/mL SDV 2mL 20 MG IV (13:56)
[2021-01-27] MEDS: potassium chloride 20 MEQ in sodium chloride 0.9% 500 ML 250 MEQ IV (13:58)
[2021-01-27] MEDS: pegfilgrastim 6 mg/0.6 mL Kit (onpro) SUBCUT (15:04)
--- NOTE | 2021-01-29 17:22 | ONC FU_ITS ---
Dr. Art follow up note Patient: Link Rollins Unit #: [id number]: 1950 Dicatated By: Kriss Art M.D.Date of Visit:Jan 27, 2021 Onc Med Follow-up/Prog Note History of Present Illness: Mr. Link Fink, is a 70-year-old gentleman with history of hematuria, initially observed on a day before [place] eve, went to [facility] in [place], [place] CT scan of abdomen pelvis showed an enhancing mass in the left posterior aspect of urinary bladder consistent with bladder cancer, his CBC showed hemoglobin 13.6 and creatinine was 1.08 Subsequently, he was referred to urology, Dr. 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 Patient underwent CT scan of abdomen pelvis on December 13, 2020 which showed left double-J ureteral stent, no hydronephrosis mild left eccentric bladder wall thickening. Mild diffuse fatty infiltration of the liver. Stable fibrotic opacity right lower lobe of lung medially measuring 9 mm. Unchanged since November 06, 2020, no pelvic lymphadenopathy Past medical history significant for arthritis, chronic GERD, hypercholesterolemia, patient is a former smoker quit smoking 35 years ago denies alcohol use. , Complaining of off and on hematuria since underwent surgery for bladder cancer. Otherwise denies any fever chills denies any nausea or vomiting, about 10 pound weight loss due to poor appetite. No melena or hematochezia, no hemoptysis hematemesis, no jaundice, no bony pains, no dysuria.As per patient Dr. Centeno from [place], [place] called him on Wednesday and did discuss with him regarding treatment options which include radical cystectomy but prior to that he recommended chemotherapy. Echocardiogram done on January 09, 2021 showed ejection fraction 60% Came for follow-up, denies any specific complaints, no fever chills, no nausea or vomiting, no diarrhea constipation patient has already Port-A-Cath placement and now neoadjuvant chemotherapy with dose dense MVAC is under consideration. Patient has follow-up appointment with Dr. Centeno in [place] on February 04, 2021. Patient denies any fever chills diarrhea nausea or vomiting or diarrhea or constipation but off and on hematuria. Medications: Daily Vitamin 1 Tablet Oral daily, Gabapentin 1 Capsule (of 300 mg) Oral t.i.d., HYDROcodone-Acetaminophen 1 Tablet (of 10-325 mg) Oral four times a day, Lovastatin 1 Tablet (of 40 mg) Oral daily, Meloxicam 1 Tablet (of 15 mg) Oral daily, Omeprazole 1 Capsule (of 40 mg) Capsule Delayed Release Oral daily, Sertraline HCl 1 Tablet (of 100 mg) Oral daily, Tamsulosin HCl 1 Capsule (of 0.4 mg) Oral b.i.d. Allergies: No Known Allergies. Review of Systems: Review of Systems is not available for this patient. Vital Signs: Performed on Jan 27, 2021 08:18 Height - 71.50 in Weight - 177 lbs (HIGH) BSA - 2.01 sq.m BMI - 24.34 Temperature - 97.7 F (LOW) Pulse - 77 /min Respiration - 18 /min BP - 131/75 mm(hg) O2 Sat - 97 % Pain - 0 Fatigue - 4 Performance Status: 0 - Fully active, able to carry on all predisease activities without restrictions. (ECOG) Physical Examination: ENMT - No mouth sores, no thrush, no jaundice, Respiratory - Lungs are clear to auscultation, Cardiovascular - Regular rate and rhythm of heart, Abdomen - Soft, bowel sounds present, Extremities - No visible edema. Lab/Imaging: Test performed on Dec 23, 2020 11:59 Sodium 139 mmol/L Potassium 3.7 mmol/L Chloride 105 mmol/L CO2 27 mmol/L Anion Gap 10.7 BUN 13 mg/dL Creatinine 1.0 mg/dL Cr Clearance (Est) 75.31 mL/min Glucose 109 mg/dL Osmolality - Calculated 289 mOsm/kg Calcium 8.8 mg/dL Protein, Total 7.1 g/dL Albumin 4.4 g/dL Globulin 2.7 g/dL Bilirubin, Total 0.3 mg/dL ALT (SGPT) 15 U/L AST (SGOT) 19 U/L Alkaline Phosphatase 71 IU/L WBC 4.9 10 3/uL RBC 4.68 10 6/uL HGB 13.1 g/dL HCT 42.0 % MCV 89.7 fL MCH 28.0 pg MCHC 31.2 g/dL RDW 13.6 % Platelet Count 195 10 3/cmm MPV 9.3 fL Neutrophils 2.51 10 3/uL Lymphocytes 1.7 10 3/uL Monocytes 0.4 10 3/uL Eosinophils 0.2 10 3/uL Basophils 0.1 10 3/uL Neutrophil % 50.9 % Lymphocyte % 34.3 % Monocyte % 8.5 % Eosinophil % 4.9 % Basophils % 1.2 % NRBC % 0 % Impression: Muscle invasive, high-grade urothelial carcinoma involving detrusor muscle, carcinoma in situ identified per TURBT done on November 28, 2020 CT scan of abdomen pelvis done on December 13, 2020 showed no abdominal or pelvic lymphadenopathy mild left central bladder wall thickening.Clinical stage T2, NX, MX Stable fibrotic opacity right lower lobe of lung medially measuring 9 mm Arthritis GERD Plan: Discussed with patient regarding his labs from December 2020 showed normal CBC and CMP clinically, patient is doing well now being considered for neoadjuvant chemotherapy for muscle invasive bladder carcinoma with dose dense MVAC, will proceed with first cycle today followed by Brandonlasta to prevent chemotherapy-induced neutropenia/leukopenia and also to maintain chemotherapy schedule. Patient return to clinic in 1 week with CBC CMP Signed By: Kriss Art M.D. <<Signature on File>>
== END 2021-01-27 07:58 | disposition home or self-care (01) ==
LOC: ONCMED 08:00
PROVIDERS: PCP Family Medicine; Visit Provider Internal Medicine Hematology & Oncology
DX: C68.8 Malignant neoplasm of overlapping sites of urinary organs (principal); M19.90 Unspecified osteoarthritis, unspecified site; K21.9 Gastro-esophageal reflux disease without esophagitis; Z79.899 Other long term (current) drug therapy; Z76.89 Persons encountering health services in other specified circumstances
CPT/HCPCS: 80053; 85025; 96367; 96372; 96375; 96377; 96411; 96413; 96417; 99215; J1100; J1200; J1453; J1940; J2469; J2505; J3475; J3480; J3490; J7030; J7040; J7050; J9000; J9060; J9260; J9360

== ENCOUNTER 2021-02-03 05:53 | Outpatient (CLI) | payer MEDICARE, BC, SELFPAY ==
[2021-02-03 13:24] LABS: Basophils # 0.1 10^3/uL (0.0-0.1); Basophils % 3.1 %; Eosinophils # 0.1 10^3/uL (0.0-0.8); Eosinophils % 5.2 %; Hematocrit 39.5 % (42.0-52.0); Hemoglobin 12.6 g/dL (11.7-16.6); Lymphocytes % 52.6 %; Mean Corpuscular HGB Conc 31.9 g/dL (30.0-36.0); Mean Corpuscular Hemoglobin 28.4 pg (28.0-34.0); Mean Corpuscular Volume 89.2 fL (80-94); Mean Platelet Volume 9.5 fL (7.4-10.4); Monocytes # 0.2 10^3/uL (0.2-0.9); Monocytes % 10.3 %; Neutrophils % 25.7 %; Nucleated Red Blood Cells % 0 %; Platelet Count 126 10^3/cmm (130-400); Red Blood Count 4.43 10^6/uL (4.1-5.3); Red Cell Distribution Width 13.9 % (12.1-15.1); White Blood Count 1.9 10^3/uL (4.0-10.0)
[2021-02-03 13:47] LABS: Alanine Aminotransferase 20 U/L (0-41); Albumin Level 4.3 g/dL (3.5-5.2); Alkaline Phosphatase 79 IU/L (40-130); Anion Gap 16.3 (5-19); Aspartate Amino Transferase 21 U/L (0-40); Blood Urea Nitrogen 14 mg/dL (8-23); Calcium 8.9 mg/dL (8.5-10.5); Carbon Dioxide 23 mmol/L (22-29); Chloride 103 mmol/L (98-107); Globulin 2.8 g/dL (1.3-4.6); Glucose 123 mg/dL (65-115); Osmolality Calculated 288 mOsm/kg (285-295); Potassium 4.3 mmol/L (3.5-5.1); Sodium 138 mmol/L (136-145); Total Bilirubin 0.3 mg/dL (0.15-1.2); Total Protein 7.1 g/dL (6.6-8.7)
--- NOTE | 2021-02-03 23:00 | ONC FU_ITS ---
[facility] Patient Note Patient: Link Rollins Unit #: [id number]: [id number] Dictated By: Sylvia BarreraDate of Visit: Feb 03, 2021 Onc MED Follow-Up/Prog Note Chief Complaint: Bladder cancer History of Present Illness: Mr. Fink, is a 70-year-old gentleman with history of hematuria, initially observed on a day before [place] eve, went to [facility] in [place], [place] CT scan of abdomen pelvis showed an enhancing mass in the left posterior aspect of urinary bladder consistent with bladder cancer, his CBC showed hemoglobin 13.6 and creatinine was 1.08 Subsequently, he was referred to urology, Dr. 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 Patient underwent CT scan of abdomen pelvis on December 13, 2020 which showed left double-J ureteral stent, no hydronephrosis mild left eccentric bladder wall thickening. Mild diffuse fatty infiltration of the liver. Stable fibrotic opacity right lower lobe of lung medially measuring 9 mm. Unchanged since November 06, 2020, no pelvic lymphadenopathy Past medical history significant for arthritis, chronic GERD, hypercholesterolemia, patient is a former smoker quit smoking 35 years ago denies alcohol use. , Complaining of off and on hematuria since underwent surgery for bladder cancer. Otherwise denies any fever chills denies any nausea or vomiting, about 10 pound weight loss due to poor appetite. No melena or hematochezia, no hemoptysis hematemesis, no jaundice, no bony pains, no dysuria. As per patient Dr. Centeno from [place], [place] called him on Wednesday and did discuss with him regarding treatment options which include radical cystectomy but prior to that he recommended chemotherapy. Echocardiogram done on January 09, 2021 showed ejection fraction 60% Mr Rollins began dose dense MVAC chemotherapy on January 27, 2021. He seems of tolerated his first cycle well thus far. He was given prophylactic Neulasta on pro. He presents today for day 8 follow-up. He has no specific complaints other than some intermittent headache. He states it has been there since prior to the chemo. He states that in the gnosticism. He states more so right-sided than left and comes and goes. He states that typically in the past he has had headaches he has taken aspirin but has not been taking aspirin due to the recent he advised not to take it when he was having hematuria. He has had no further hematuria and his platelet count is fine so I did give him the clearance to take 2 aspirin twice daily to see if this will relieve his headache. He has had no vision changes nausea vomiting one-sided weakness or other symptoms with the headache. He denies any persistent sinus drainage at this time. He states otherwise he is doing good. He states he has been very tired but denies any fever or chills. He has had no known Covid exposure. He states over the last few days however he is just kind of felt washed out. He is able to do all his ADLs without assistance. He states he is eating good. He denies any diarrhea or constipation. He is urinating well with no evidence of hematuria. He has had no lower extremity edema. He denies any neuropathy symptoms. He denies any new shortness of breath orthopnea. He denies any chest pain or palpitations. He has had no rash or skin changes at this point. His ECOG is 1. Mr Rollins has follow-up appointment with Dr. Centeno in [place] on February 04, 2021. Past Medical History: Arthritis Gastroesophageal reflux disease Hypercholesterolemia Past Surgical History: Transurethral destruction of bladder lesion Allergies: No Known Allergies. Medications: Daily Vitamin 1 Tablet Oral daily Gabapentin 1 Capsule (of 300 mg) Oral t.i.d. HYDROcodone-Acetaminophen 1 Tablet (of 10-325 mg) Oral four times a day Lovastatin 1 Tablet (of 40 mg) Oral daily Meloxicam 1 Tablet (of 15 mg) Oral daily Omeprazole 1 Capsule (of 40 mg) Capsule Delayed Release Oral daily Sertraline HCl 1 Tablet (of 100 mg) Oral daily Tamsulosin HCl 1 Capsule (of 0.4 mg) Oral b.i.d. Family History: Mr. Rollins's mother at age 92: heart disease. Mr. Rollins's father at age 79: congestive heart failure. Social History: Mr. Rollins is . Mr. Rollins no longer smokes. He has no history of drinking. Review Of Symptoms: Constitutional Denies fevers, chills, night sweats, excessive fatigue or weight loss. PETERSON-see above. Tired. Allergic/Immunologic No reactions. Eyes Denies significant visual changes. No diplopia. No amaurosis. ENMT Denies changes in hearing, sore throat, mouth sores, difficulty or changes in swallowing ability, and/or sinus drainage. Hematologic/Lymphatic Denies easy bruising or bleeding. The patient denies any tender or palpable lymph nodes. Respiratory Denies dyspnea on exertion, chest pain, cough or hemoptysis. Denies orthopnea. Cardiovascular Denies anginal chest pain, palpitations or orthopnea. Gastrointestinal Denies nausea, vomiting, diarrhea, GI bleeding, or constipation. Denies change in bowel habits and/or stool color, no heartburn or early satiety. Genitourinary (M) Denies hematuria, dysuria, increased frequency, urgency, hesitancy or incontinence. Musculoskeletal Denies joint pain, swelling or redness. No decreased range of motion. Integumentary Denies chronic rashes, inflammation, ulcerations or skin changes. Neurologic Denies headache, blurred vision, and no areas of focal weakness or numbness. Normal gait. No sensory problems. Psychiatric Denies insomnia, depression, haley or mood swings. Vital Signs: Performed on Feb 03, 2021 14:50 Height - 71.50 in Weight - 177.4 lbs (HIGH) BSA - 2.01 sq.m BMI - 24.40 Temperature - 98.8 F Pulse - 98 /min Respiration - 18 /min BP - 137/68 mm(hg) O2 Sat - 98 % Pain - 4 Fatigue - 8,1 - No physically strenuous activity, but ambulatory and able to carry out light or sedentary work (e.g. office work, light house work). (ECOG) Physical Examination: Constitutional Alert, oriented, no acute distress. Skin pink, warm and dry. Head Normocephalic; atraumatic. Eyes Conjunctivae and sclerae are clear and without icterus. Pupils are reactive and equal. ENMT No oral exudates, ulcers, masses, thrush or mucositis. Oropharynx clear. Tongue normal. Neck Supple without masses or thyromegaly. No jugular venous distension. Hematologic/Lymphatic No petechiae or purpura. No tender or palpable lymph nodes in the cervical or supraclavicular areas. Respiratory Lungs are clear to auscultation without rhonchi or wheezing. Cardiovascular Regular rate and rhythm of heart without murmurs,clicks, gallops or rubs. Abdomen Non-tender, non-distended, no masses or ascites. Good bowel sounds noted in all quads. No guarding or rebound tenderness. No pulsatile masses. Back/Spine Non-tender to palpation. Extremities No visible deformities, no cyanosis, clubbing or edema. Musculoskeletal No tenderness or swelling, normal range of motion without obvious weakness. Integumentary No rashes or lesions. Neurologic No sensory or motor deficits, normal cerebellar function, normal gait. Psychiatric Alert and oriented times three. Coherent speech. Verbalizes understanding of our discussions today. Laboratory:Test performed on Feb 03, 2021 12:40 Sodium 138 mmol/L Potassium 4.3 mmol/L Chloride 103 mmol/L CO2 23 mmol/L Anion Gap 16.3 BUN 14 mg/dL Creatinine 0.8 mg/dL Cr Clearance (Est) 94.1400 mL/min Glucose 123 mg/dL Osmolality - Calculated 288 mOsm/kg Calcium 8.9 mg/dL Protein, Total 7.1 g/dL Albumin 4.3 g/dL Globulin 2.8 g/dL Bilirubin, Total 0.3 mg/dL ALT (SGPT) 20 U/L AST (SGOT) 21 U/L Alkaline Phosphatase 79 IU/L WBC 1.9 10 3/uL RBC 4.43 10 6/uL HGB 12.6 g/dL HCT 39.5 % MCV 89.2 fL MCH 28.4 pg MCHC 31.9 g/dL RDW 13.9 % Platelet Count 126 10 3/cmm MPV 9.5 fL Neutrophils 0.50 10 3/uL Lymphocytes 1.0 10 3/uL Monocytes 0.2 10 3/uL Eosinophils 0.1 10 3/uL Basophils 0.1 10 3/uL Neutrophil % 25.7 % Lymphocyte % 52.6 % Monocyte % 10.3 % Eosinophil % 5.2 % Basophils % 3.1 % NRBC % 0 % Impression: Muscle invasive, high-grade urothelial carcinoma involving detrusor muscle, carcinoma in situ identified per TURBT done on November 28, 2020 CT scan of abdomen pelvis done on December 13, 2020 showed no abdominal or pelvic lymphadenopathy mild left central bladder wall thickening.Clinical stage T2, NX, MX Stable fibrotic opacity right lower lobe of lung medially measuring 9 mm Arthritis GERD Plan: PROBLEMS ADDRESSED TODAY 1. Muscle invasive high-grade urethral carcinoma A. He is currently undergoing neoadjuvant chemotherapy with dose dense MVAC and began his first cycle on 01/27/2021. B. He will continue the current plan of care with cycle 1 MVAC. This is day 8. He did receive support with Neulasta. C. Today's labs reviewed in detail discussed with Mr. Mrs. Rollins and a copy was given to them. WBC 1.9, hemoglobin 12.6, platelets 126,000 ANC is 500. Sodium 138 potassium 4.3 creatinine 0.8 LFTs are normal. His weight is stable at 177.4. CHEMOTHERAPY INDUCED NEUTROPENIA WITH DAY 8 ANC OF 500. Day 1 ANC was 2160. He did have Neulasta ONPRO administration. D. Mr. Rollins was informed that he is neutropenic but has had Neulasta support therefore he is not a candidate for growth factor support with Neupogen. E. We will start him on Levaquin 500 mg for prophylaxis given his ANC of 500. F. Neutropenic precautions were discussed in detail. 2. Patient complained of headache that has been persistent over the last week. He states is in his gnosticism area. He has had no associated vision changes nausea or vomiting. He states it could be sinus. He states aspirin typically relieves his headache but he has not been taking any recently. He will try enteric-coated aspirin with food but no more than 4-day as his platelet count is stable. He may also try Excedrin once or twice daily. If his headache is persistent it may need further investigation. I was concerned it could be due/related to the Aloxi given as premeds with his chemotherapy but he states the headache was there prior to his chemotherapy administration. 3. Follow-up plan A. We will plan to see Mr. Rollins back in 1 week at which time he is due for his second cycle of dose dense MVAC. B. He was instructed to contact us in interim should questions or problems arise. Signed By: Sylvia Barrera-, AOCNP Kriss Art MD <<Signature on File>>
== END 2021-02-03 05:54 | disposition home or self-care (01) ==
LOC: ONCMED 05:56
PROVIDERS: PCP Family Medicine; Visit Provider Nurse Practitioner
DX: C67.8 Malignant neoplasm of overlapping sites of bladder (principal); D70.1 Agranulocytosis secondary to cancer chemotherapy; T45.1X5A Adverse effect of antineoplastic and immunosuppressive drugs, initial encounter; R51.9 Headache, unspecified; Z79.899 Other long term (current) drug therapy
CPT/HCPCS: 36591; 80053; 85025; 99215

== ENCOUNTER 2021-02-11 05:53 | Outpatient (CLI) | payer MEDICARE, BC, SELFPAY ==
[2021-02-11] MEDS: sodium chloride 0.9% 250 ML 75 ML IV (08:35)
[2021-02-11 09:07] LABS: Basophils # 0.1 10^3/uL (0.0-0.1); Basophils % 0.7 %; Eosinophils # 0.1 10^3/uL (0.0-0.8); Eosinophils % 0.6 %; Hemoglobin 12.8 g/dL (11.7-16.6); Lymphocytes # 1.9 10^3/uL (0.8-4.8); Lymphocytes % 18.8 %; Mean Corpuscular HGB Conc 30.5 g/dL (30.0-36.0); Mean Corpuscular Hemoglobin 28.1 pg (28.0-34.0); Mean Corpuscular Volume 92.3 fL (80-94); Mean Platelet Volume 9.6 fL (7.4-10.4); Monocytes # 0.5 10^3/uL (0.2-0.9); Monocytes % 5.1 %; Neutrophils # 6.67 10^3/uL (1.8-7.7); Nucleated Red Blood Cells % 0.2 %; Platelet Count 148 10^3/cmm (130-400); Red Blood Count 4.55 10^6/uL (4.1-5.3); Red Cell Distribution Width 15.5 % (12.1-15.1)
[2021-02-11 09:26] LABS: Alanine Aminotransferase 15 U/L (0-41); Albumin Level 4.4 g/dL (3.5-5.2); Alkaline Phosphatase 94 IU/L (40-130); Anion Gap 16.9 (5-19); Aspartate Amino Transferase 16 U/L (0-40); Blood Urea Nitrogen 18 mg/dL (8-23); Calcium 8.3 mg/dL (8.5-10.5); Carbon Dioxide 22 mmol/L (22-29); Chloride 106 mmol/L (98-107); Globulin 2.6 g/dL (1.3-4.6); Glucose 139 mg/dL (65-115); Osmolality Calculated 296 mOsm/kg (285-295); Potassium 3.9 mmol/L (3.5-5.1); Sodium 141 mmol/L (136-145); Total Bilirubin 0.2 mg/dL (0.15-1.2)
[2021-02-11 09:56] LABS: Slide Review Slide Review Perform
[2021-02-11] MEDS: palonosetron 0.25 mg/5 mL SDV IVP (10:30)
[2021-02-11] MEDS: famotidine 20 mg/2 mL INJ IVP (10:32)
[2021-02-11] MEDS: diphenhydrAMINE 50 mg/mL SDV 1mL 25 MG IVP (10:36)
[2021-02-11] MEDS: fosaprepitant 150 MG in sodium chloride 0.9% 150 ML 300 MG IV (10:52)
[2021-02-11] MEDS: FUROsemide 10 mg/mL SDV 2mL 20 MG IV (12:30)
[2021-02-11] MEDS: sodium chloride 0.9% 250 ML IV (12:32)
[2021-02-11] MEDS: potassium chloride 20 MEQ in sodium chloride 0.9% 500 ML 250 MEQ IV (13:35)
[2021-02-11] MEDS: pegfilgrastim 6 mg/0.6 mL Kit (onpro) SUBCUT (14:20)
--- NOTE | 2021-02-23 15:00 | ONC FU_ITS ---
[facility] Patient Note Patient: Link Rollins Unit #: [id number]: [id number] Dictated By: Sylvia BarreraDate of Visit: Feb 11, 2021 Onc MED Follow-Up/Prog Note Chief Complaint: Bladder cancer History of Present Illness: Mr. Rollins is a 70-year-old gentleman with history of hematuria, initially observed on a day before [place] eve, went to [facility] in [place], [place] CT scan of abdomen pelvis showed an enhancing mass in the left posterior aspect of urinary bladder consistent with bladder cancer, his CBC showed hemoglobin 13.6 and creatinine was 1.08 Subsequently, he was referred to urology, Dr. 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 Patient underwent CT scan of abdomen pelvis on December 13, 2020 which showed left double-J ureteral stent, no hydronephrosis mild left eccentric bladder wall thickening. Mild diffuse fatty infiltration of the liver. Stable fibrotic opacity right lower lobe of lung medially measuring 9 mm. Unchanged since November 06, 2020, no pelvic lymphadenopathy Past medical history significant for arthritis, chronic GERD, hypercholesterolemia, patient is a former smoker quit smoking 35 years ago denies alcohol use. He has had intermittent hematuria since underwent surgery for bladder cancer. Otherwise denies any fever chills denies any nausea or vomiting, about 10 pound weight loss due to poor appetite. No melena or hematochezia, no hemoptysis hematemesis, no jaundice, no bony pains, no dysuria. Mr Rollins reported that Dr. Centeno from [place], [place] called him and did discuss with him regarding treatment options which include radical cystectomy but prior to that he recommended chemotherapy. Echocardiogram done on January 09, 2021 showed ejection fraction 60% Mr Rollins began dose dense MVAC chemotherapy on January 27, 2021. He seems of tolerated his first cycle well thus far. He was given prophylactic Neulasta Onpro. He is here today for follow-up. He is due for cycle 2-day 1 dose dense MVAC. Overall he is doing well. He reports he did see Dr. Centeno last week and the visit went well. He states Dr. Centeno was worried about his blood counts as he did have documented neutropenia last week with an ANC of 500. His labs are currently pending this morning. He denies any fever or chills. He denies any mouth sores, sore throat or difficulty swallowing. He states his energy is fair. He states he tires a lot but does recover with rest. He denies any diarrhea or constipation. He has had no mouth sores, sore throat or difficulty swallowing. He states that the bottom of his feet feel like they are burning at times. That is not any worse and states it is actually resolved today. He denies any lower extremity edema. He has no other concerns. He denies pain. His ECOG is 1. Past Medical History: Arthritis Gastroesophageal reflux disease Hypercholesterolemia Past Surgical History: Transurethral destruction of bladder lesion Allergies: No Known Allergies. Medications: Daily Vitamin 1 Tablet Oral daily Gabapentin 1 Capsule (of 300 mg) Oral t.i.d. HYDROcodone-Acetaminophen 1 Tablet (of 10-325 mg) Oral four times a day Lovastatin 1 Tablet (of 40 mg) Oral daily Meloxicam 1 Tablet (of 15 mg) Oral daily Omeprazole 1 Capsule (of 40 mg) Capsule Delayed Release Oral daily Sertraline HCl 1 Tablet (of 100 mg) Oral daily Tamsulosin HCl 1 Capsule (of 0.4 mg) Oral b.i.d. Family History: Mr. Rollins's mother at age 92: heart disease. Mr. Rollins's father at age 79: congestive heart failure. Social History: Mr. Rollins is . Mr. Rollins no longer smokes. He has no history of drinking. Review Of Symptoms: Constitutional Denies fevers, chills, night sweats, excessive fatigue or weight loss. Some fatigue but stable. Allergic/Immunologic No reactions. Eyes Denies significant visual changes. No diplopia. No amaurosis. ENMT Denies changes in hearing, sore throat, mouth sores, difficulty or changes in swallowing ability, and/or sinus drainage. Hematologic/Lymphatic Denies easy bruising or bleeding. The patient denies any tender or palpable lymph nodes. Respiratory Denies dyspnea on exertion, chest pain, cough or hemoptysis. Denies orthopnea. Cardiovascular Denies anginal chest pain, palpitations or orthopnea. Gastrointestinal Denies nausea, vomiting, diarrhea, GI bleeding, or constipation. Denies change in bowel habits and/or stool color, no heartburn or early satiety. Genitourinary (M) Denies hematuria, dysuria, increased frequency, urgency, hesitancy or incontinence. Musculoskeletal Denies joint pain, swelling or redness. No decreased range of motion. Integumentary Denies chronic rashes, inflammation, ulcerations or skin changes. Neurologic Denies headache, blurred vision, and no areas of focal weakness or numbness. Normal gait. No sensory problems. He states he has had some burning sensations on the bottom of his feet but that is currently stable and he states it is gone at the present. Psychiatric Denies insomnia, depression, haley or mood swings. Vital Signs: Performed on Feb 11, 2021 08:55 Height - 71.50 in Weight - 177.2 lbs (LOW) BSA - 2.01 sq.m BMI - 24.37 Temperature - 97.2 F (LOW) Pulse - 91 /min Respiration - 18 /min BP - 119/65 mm(hg) O2 Sat - 98 % Pain - 0 Fatigue - 7,1 - No physically strenuous activity, but ambulatory and able to carry out light or sedentary work (e.g. office work, light house work). (ECOG) Physical Examination: Constitutional Alert, oriented, no acute distress. Skin pink, warm and dry. Head Normocephalic; atraumatic. Eyes Conjunctivae and sclerae are clear and without icterus. Pupils are reactive and equal. Neck Supple without masses or thyromegaly. No jugular venous distension. Hematologic/Lymphatic No petechiae or purpura. No tender or palpable lymph nodes in the cervical or supraclavicular areas. Respiratory Lungs are clear to auscultation without rhonchi or wheezing. Cardiovascular Regular rate and rhythm of heart without murmurs,clicks, gallops or rubs. Abdomen Non-tender, non-distended, no masses or ascites. Good bowel sounds noted in all quads. No guarding or rebound tenderness. No pulsatile masses. Back/Spine Non-tender to palpation. Extremities No visible deformities, no cyanosis, clubbing or edema. Musculoskeletal No tenderness or swelling, normal range of motion without obvious weakness. Integumentary No rashes or lesions. Neurologic No sensory or motor deficits, normal cerebellar function, normal gait. Psychiatric Alert and oriented times three. Coherent speech. Verbalizes understanding of our discussions today. Laboratory:Test performed on Feb 11, 2021 08:10 Sodium 141 mmol/L Potassium 3.9 mmol/L Chloride 106 mmol/L CO2 22 mmol/L Anion Gap 16.9 BUN 18 mg/dL Creatinine 1.1 mg/dL Cr Clearance (Est) 68.4700 mL/min Glucose 139 mg/dL Osmolality - Calculated 296 mOsm/kg Calcium 8.3 mg/dL Protein, Total 7.0 g/dL Albumin 4.4 g/dL Globulin 2.6 g/dL Bilirubin, Total 0.2 mg/dL ALT (SGPT) 15 U/L AST (SGOT) 16 U/L Alkaline Phosphatase 94 IU/L WBC 10.0 10 3/uL RBC 4.55 10 6/uL HGB 12.8 g/dL HCT 42.0 % MCV 92.3 fL MCH 28.1 pg MCHC 30.5 g/dL RDW 15.5 % Platelet Count 148 10 3/cmm MPV 9.6 fL Neutrophils 6.67 10 3/uL Lymphocytes 1.9 10 3/uL Monocytes 0.5 10 3/uL Eosinophils 0.1 10 3/uL Basophils 0.1 10 3/uL Neutrophil % 67.0 % Lymphocyte % 18.8 % Monocyte % 5.1 % Eosinophil % 0.6 % Basophils % 0.7 % NRBC % 0.2 % CBC Slide Review Slide Review Perform SLIDE REVIEW AGREES WITH AUTOMATED RESULTS ST Impression: Muscle invasive, high-grade urothelial carcinoma involving detrusor muscle, carcinoma in situ identified per TURBT done on November 28, 2020 CT scan of abdomen pelvis done on December 13, 2020 showed no abdominal or pelvic lymphadenopathy mild left central bladder wall thickening. Clinical stage T2, NX, MX Stable fibrotic opacity right lower lobe of lung medially measuring 9 mm Arthritis GERD Plan: PROBLEMS ADDRESSED TODAY 1. Muscle invasive high-grade urethral carcinoma A. He is currently undergoing neoadjuvant chemotherapy with dose dense MVAC and began his first cycle on 01/27/2021. B. He will continue the current plan of care with cycle 2 MVAC. This is day 1. He will continue to receive support with Neulasta. His ANC of day 8 of cycle 1 was 500. C. Today's labs reviewed in detail discussed with Mr. Mrs. Rollins and a copy was given to them. WBC 10.0, hemoglobin 12.8, platelets 148,000 ANC is 6670. Potassium 3.9 creatinine 1.1 random glucose 139 LFTs are normal. CHEMOTHERAPY INDUCED NEUTROPENIA WITH CYCLE 1 DAY 8 ANC OF 500. Day 1 ANC was 2160. He did have Neulasta ONPRO administration. D. Mr. Rollins was informed that his neutropenia from last week has resolved but we will continue the Neulasta support. 2. Mr Rollins complained of headache that has been persistent over the last week. He states is in his scientologist area. He has had no associated vision changes nausea or vomiting. He states it could be sinus. He states aspirin typically relieves his headache but he has not been taking any recently. He will try enteric-coated aspirin with food but no more than 4-day as his platelet count is stable. He may also try Excedrin once or twice daily. If his headache is persistent it may need further investigation. I was concerned it could be due/related to the Aloxi given as premeds with his chemotherapy but he states the headache was there prior to his chemotherapy administration. 3. Follow-up plan A. We will plan to see Mr. Rollins back in 2 weeks at which time he is due for his third cycle of dose dense MVAC. B. WBC 10.0, hemoglobin 12.8, platelets 148,000 ANC is 6670. Potassium 3.9 creatinine 1.1 random glucose 139 LFTs are normal. C. He was instructed to contact us in interim should questions or problems arise. Signed By: Romel Barrera, AOCNP Kriss Art MD <<Signature on File>>
== END 2021-02-11 05:54 | disposition home or self-care (01) ==
LOC: ONCMED 05:56
PROVIDERS: PCP Family Medicine; Visit Provider Nurse Practitioner
DX: C68.8 Malignant neoplasm of overlapping sites of urinary organs (principal); D70.1 Agranulocytosis secondary to cancer chemotherapy; T45.1X5D Adverse effect of antineoplastic and immunosuppressive drugs, subsequent encounter; R51.9 Headache, unspecified; Z79.899 Other long term (current) drug therapy
CPT/HCPCS: 80053; 85025; 96366; 96367; 96372; 96375; 96411; 96413; 99214; J1100; J1200; J1453; J1940; J2469; J2505; J3475; J3480; J3490; J7030; J7040; J7050; J9000; J9060; J9260; J9360

== ENCOUNTER 2021-02-26 07:14 | Outpatient (CLI) | payer MEDICARE, BC, SELFPAY ==
[2021-02-26 08:34] LABS: Hematocrit 37.4 % (42.0-52.0); Hemoglobin 11.7 g/dL (11.7-16.6); Mean Corpuscular HGB Conc 31.3 g/dL (30.0-36.0); Mean Corpuscular Hemoglobin 28.4 pg (28.0-34.0); Mean Corpuscular Volume 90.8 fL (80-94); Mean Platelet Volume 9.3 fL (7.4-10.4); Platelet Count 165 10^3/cmm (130-400); Red Blood Count 4.12 10^6/uL (4.1-5.3); Red Cell Distribution Width 16.6 % (12.1-15.1)
[2021-02-26 09:08] LABS: Alanine Aminotransferase 12 U/L (0-41); Albumin Level 4.3 g/dL (3.5-5.2); Alkaline Phosphatase 113 IU/L (40-130); Anion Gap 13.8 (5-19); Aspartate Amino Transferase 19 U/L (0-40); Blood Urea Nitrogen 17 mg/dL (8-23); Calcium 8.5 mg/dL (8.5-10.5); Carbon Dioxide 24 mmol/L (22-29); Chloride 106 mmol/L (98-107); Globulin 2.4 g/dL (1.3-4.6); Glucose 137 mg/dL (65-115); Osmolality Calculated 294 mOsm/kg (285-295); Potassium 3.8 mmol/L (3.5-5.1); Sodium 140 mmol/L (136-145); Total Bilirubin 0.2 mg/dL (0.15-1.2); Total Protein 6.7 g/dL (6.6-8.7)
[2021-02-26 09:40] LABS: Slide Review Slide Review Perform
[2021-02-26 10:02] LABS: Absolute Neutrophil 13.6 10^3/cmm (1.4-6.5); Absolute Segmented Neutrophil 9.4 10/cmm (1.6-7.1); Anisocytosis 1+; Band Neutrophils Absolute 4.2 10^3/cmm (0.0-1.2); Giant Platelets Trace; Lymphocytes 5 %; Monocytes Absolute 0.8 10^3/cmm (0.1-0.6); Platelet Estimate Normal (Normal); Polychromasia Trace; Segmented Neutrophils 59 %; Total Cells Counted 100 (0-100)
[2021-02-26 10:03] LABS: Eosinophils 0 %; Lymphocytes Absolute 0.8 10^3/cmm (1.2-3.4)
[2021-02-26] MEDS: sodium chloride 0.9% 250 ML IV (10:55)
[2021-02-26] MEDS: ondansetron 2 mg/ML SDV 2 mL 12 MG IVP (10:57)
[2021-02-26] MEDS: famotidine 20 mg/2 mL INJ IVP (11:00)
[2021-02-26] MEDS: diphenhydrAMINE 50 mg/mL SDV 1mL 25 MG IVP (11:03)
[2021-02-26] MEDS: fosaprepitant 150 MG in sodium chloride 0.9% 150 ML 300 MG IV (12:55)
[2021-02-26] MEDS: FUROsemide 10 mg/mL SDV 2mL 20 MG IV (15:17)
[2021-02-26] MEDS: potassium chloride 20 MEQ in sodium chloride 0.9% 500 ML 250 MEQ IV (15:18)
[2021-02-26] MEDS: pegfilgrastim 6 mg/0.6 mL Kit (onpro) SUBCUT (15:51)
--- NOTE | 2021-03-08 20:20 | ONC FU_ITS ---
[facility] Patient Note Patient: Link Rollins Unit #: [id number]: [id number] Dictated By: Sylvia BarreraDate of Visit: Feb 26, 2021 Onc MED Follow-Up/Prog Note Chief Complaint: Bladder cancer History of Present Illness: Mr. Rollins is a 70-year-old gentleman with history of hematuria, initially observed on a day before [place] eve, went to [facility] in [place], [place] CT scan of abdomen pelvis showed an enhancing mass in the left posterior aspect of urinary bladder consistent with bladder cancer, his CBC showed hemoglobin 13.6 and creatinine was 1.08 Subsequently, he was referred to urology, Dr. 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 Patient underwent CT scan of abdomen pelvis on December 13, 2020 which showed left double-J ureteral stent, no hydronephrosis mild left eccentric bladder wall thickening. Mild diffuse fatty infiltration of the liver. Stable fibrotic opacity right lower lobe of lung medially measuring 9 mm. Unchanged since November 06, 2020, no pelvic lymphadenopathy Past medical history significant for arthritis, chronic GERD, hypercholesterolemia, patient is a former smoker quit smoking 35 years ago denies alcohol use. He has had intermittent hematuria since underwent surgery for bladder cancer. Otherwise denies any fever chills denies any nausea or vomiting, about 10 pound weight loss due to poor appetite. No melena or hematochezia, no hemoptysis hematemesis, no jaundice, no bony pains, no dysuria. Mr Rollins reported that Dr. Centeno from [place], [place] called him and did discuss with him regarding treatment options which include radical cystectomy but prior to that he recommended chemotherapy. Echocardiogram done on January 09, 2021 showed ejection fraction 60% Mr Rollins began dose dense MVAC chemotherapy on January 27, 2021. He has tolerated his first two cycles well thus far. He was given prophylactic Neulasta Onpro. He is here today for follow-up. He is due for cycle 3-day 1 dose dense MVAC. He states he feels pretty good for the most part but does report that for 3 to 4 days after cycle 2 he did have left upper quadrant abdominal pain. He did report constipation after we discussed his left upper quadrant pain. He states he did have constipation for about 3 to 5 days after the chemotherapy and it is now resolved. He is able to use stool softeners and occasional laxative and states everything is working well now. He states that his neuropathy is much worse to the point where is bothering his feet and hands. He states that occasionally it bothers him to walk but now that has dramatically improved. He states he has had trouble buttoning his shirt right after treatment but that too has improved at this point. He denies any fever or chills. He denies any mouth sores, sore throat or difficulty swallowing. He denies any hot flashes. He has had no symptoms of infection. He states his appetite is fair. His energy is okay . He denies any shortness of breath orthopnea. He said no chest pain or palpitations. He denies any hearing changes. He has had occasional nausea but states is nothing has been bothersome. He denies any current diarrhea or constipation. His urine he states is dark yellow but he has not been drinking a lot of fluids per his report. We did discuss him increasing his water intake. We will also obtain a UA today if he is able. His neuropathy is as above. His ECOG is 1. Past Medical History: Arthritis Gastroesophageal reflux disease Hypercholesterolemia Past Surgical History: Transurethral destruction of bladder lesion Allergies: No Known Allergies. Medications: Daily Vitamin 1 Tablet Oral daily Gabapentin 1 Capsule (of 300 mg) Oral t.i.d. HYDROcodone-Acetaminophen 1 Tablet (of 10-325 mg) Oral four times a day Lovastatin 1 Tablet (of 40 mg) Oral daily Meloxicam 1 Tablet (of 15 mg) Oral daily Omeprazole 1 Capsule (of 40 mg) Capsule Delayed Release Oral daily Sertraline HCl 1 Tablet (of 100 mg) Oral daily Tamsulosin HCl 1 Capsule (of 0.4 mg) Oral b.i.d. Family History: Mr. Rollins's mother at age 92: heart disease. Mr. Rollins's father at age 79: congestive heart failure. Social History: Mr. Rollins is . Mr. Rollins no longer smokes. He has no history of drinking. Review Of Symptoms: Vital Signs: Performed on Feb 26, 2021 16:32 Height - 71.50 in Temperature - 97.5 F (LOW) Pulse - 87 /min Respiration - 16 /min BP - 164/77 mm(hg) (HIGH) O2 Sat - 98 % Performed on Feb 26, 2021 10:10 Height - 71.50 in Weight - 174 lbs (LOW) BSA - 2.00 sq.m BMI - 23.93 Temperature - 99.0 F (HIGH) Pulse - 93 /min Respiration - 17 /min BP - 134/71 mm(hg) O2 Sat - 97 % Pain - 0,1 - No physically strenuous activity, but ambulatory and able to carry out light or sedentary work (e.g. office work, light house work). (ECOG) Physical Examination: Constitutional Alert, oriented, no acute distress. Skin pink, warm and dry. Head Normocephalic; atraumatic. Eyes Conjunctivae and sclerae are clear and without icterus. Pupils are reactive and equal. Neck Supple without masses or thyromegaly. No jugular venous distension. Hematologic/Lymphatic No petechiae or purpura. No tender or palpable lymph nodes in the cervical or supraclavicular areas. Respiratory Lungs are clear to auscultation without rhonchi or wheezing. Cardiovascular Regular rate and rhythm of heart without murmurs,clicks, gallops or rubs. Back/Spine Non-tender to palpation. Extremities No visible deformities, no cyanosis, clubbing or edema. Musculoskeletal No tenderness or swelling, normal range of motion without obvious weakness. Integumentary No rashes or lesions. Neurologic No sensory or motor deficits, normal cerebellar function, normal gait. Psychiatric Alert and oriented times three. Coherent speech. Verbalizes understanding of our discussions today. Laboratory:Test performed on Feb 26, 2021 08:16 Sodium 140 mmol/L Potassium 3.8 mmol/L Chloride 106 mmol/L CO2 24 mmol/L Anion Gap 13.8 BUN 17 mg/dL Creatinine 1.1 mg/dL Cr Clearance (Est) 68.4700 mL/min Glucose 137 mg/dL Osmolality - Calculated 294 mOsm/kg Calcium 8.5 mg/dL Protein, Total 6.7 g/dL Albumin 4.3 g/dL Globulin 2.4 g/dL Bilirubin, Total 0.2 mg/dL ALT (SGPT) 12 U/L AST (SGOT) 19 U/L Alkaline Phosphatase 113 IU/L WBC 16.0 10 3/uL Manual Segs % 59 % Manual Bands % 26.0 % RBC 4.12 10 6/uL HGB 11.7 g/dL Manual Lymphs % 5 % Atypical Lymphs % 0.0 % HCT 37.4 % MCV 90.8 fL Total Cells Counted 100 Manual Monos % 5.0 % MCH 28.4 pg Manual Eos % 0 % MCHC 31.3 g/dL Manual Basos % 0.0 % RDW 16.6 % Metamyelocytes % 2.0 % Platelet Count 165 10 3/cmm MPV 9.3 fL Myelocytes % 3.0 % CBC Slide Review Slide Review Perform Polychromasia Trace Anisocytosis 1+ Platelet Estimate Normal Platelets, Giant Trace Manual Segs Abs 9.4 10/cmm Manual Bands Abs 4.2 10 3/cmm Manual Neutrophils Abs 13.6 10 3/cmm Manual Lymphocytes Abs 0.8 10 3/cmm Manual Monocytes Abs 0.8 10 3/cmm Manual Eosinophils Abs 0.0 10 3/cmm Manual Basophils Abs 0.0 10 3/cmm Test performed on Feb 20, 2021 12:05 Neutrophils (Gran) 0.81 10^9/L Lymphocytes 1.23 10^9/L Monocytes 0.40 10^9/L Eosinophils 0.01 10^9/L Basophils 0.08 10^9/L Test performed on Feb 11, 2021 08:10 Neutrophil % 67.0 % Lymphocyte % 18.8 % Monocyte % 5.1 % Eosinophil % 0.6 % Basophils % 0.7 % NRBC % 0.2 % Impression: Muscle invasive, high-grade urothelial carcinoma involving detrusor muscle, carcinoma in situ identified per TURBT done on November 28, 2020 CT scan of abdomen pelvis done on December 13, 2020 showed no abdominal or pelvic lymphadenopathy mild left central bladder wall thickening. Clinical stage T2, NX, MX Stable fibrotic opacity right lower lobe of lung medially measuring 9 mm Arthritis GERD Plan: PROBLEMS ADDRESSED TODAY 1. Muscle invasive high-grade urethral carcinoma A. He is currently undergoing neoadjuvant chemotherapy with dose dense MVAC and began his first cycle on 01/27/2021. B. He will continue the current plan of care with cycle 3 MVAC-But I have dose reduced the cisplatin due to severe, recurrent peripheral neuropathy in his hands and feet.. This is day 1. He will continue to receive support with Neulasta. His ANC of day 8 of cycle 1 was 500. C. Today's labs reviewed in detail discussed with Mr. Mrs. Rollins and a copy was given to them. WBC 16.0, hemoglobin 11.7, platelets 1 65,000, ANC is 13,600. Potassium 3.8, creatinine 1.1 random glucose 137 LFTs are normal. CHEMOTHERAPY INDUCED NEUTROPENIA WITH CYCLE 1 DAY 8 ANC OF 500. Day 1 ANC was 2160. He did have Neulasta ONPRO administration. 2. Mr Rollins had constipation post treatment that lasted 3 to 5 days after cycle 2. A. He also had a headache in the past (after cycle 1) that was also persistent. It was suspicious that it could have been the Aloxi, but I did not change it with cycle 2 because he was suspicious that his headache was due to sinuses. I will change his Aloxi to Zofran to see if this will help with his headache and constipation. B. He has been advised to take his antiemetics at home if he has any experience of nausea. 3. Follow-up plan A. We will plan to see Mr. Rollins back after his follow-up with Dr. Centeno as he has now completed 3 cycles of MVAC. B. He was instructed to contact us in interim should questions or problems arise. Signed By: Sylvia Barrera-, WING Art MD <<Signature on File>>
== END 2021-02-26 07:15 | disposition home or self-care (01) ==
PROVIDERS: PCP Family Medicine; Visit Provider Nurse Practitioner
DX: Z51.11 Encounter for antineoplastic chemotherapy (principal); C68.8 Malignant neoplasm of overlapping sites of urinary organs; D70.1 Agranulocytosis secondary to cancer chemotherapy; T45.1X5A Adverse effect of antineoplastic and immunosuppressive drugs, initial encounter; M06.9 Rheumatoid arthritis, unspecified; K21.9 Gastro-esophageal reflux disease without esophagitis; E78.00 Pure hypercholesterolemia, unspecified; Z79.899 Other long term (current) drug therapy
CPT/HCPCS: 80053; 85007; 85025; 96367; 96372; 96375; 96377; 96411; 96413; 96417; 99214; J1100; J1200; J1453; J1940; J2405; J2505; J3475; J3480; J3490; J7030; J7040; J7050; J9000; J9060; J9260; J9360

== ENCOUNTER 2021-03-13 06:08 | Outpatient (CLI) | payer MEDICARE, BC, SELFPAY ==
[2021-03-13 08:53] LABS: Basophils # 0.2 10^3/uL (0.0-0.1); Basophils % 0.9 %; Eosinophils # 0.1 10^3/uL (0.0-0.8); Eosinophils % 0.2 %; Hematocrit 34.5 % (42.0-52.0); Hemoglobin 10.7 g/dL (11.7-16.6); Lymphocytes % 9.9 %; Mean Corpuscular Volume 93.5 fL (80-94); Mean Platelet Volume 9.5 fL (7.4-10.4); Monocytes # 1.1 10^3/uL (0.2-0.9); Monocytes % 5.4 %; Neutrophils # 14.69 10^3/uL (1.8-7.7); Neutrophils % 71.7 %; Nucleated Red Blood Cells # 0.1 /100WBC; Nucleated Red Blood Cells % 0.3 %; Platelet Count 179 10^3/cmm (130-400); Red Blood Count 3.69 10^6/uL (4.1-5.3); Red Cell Distribution Width 18.5 % (12.1-15.1); White Blood Count 20.5 10^3/uL (4.0-10.0)
[2021-03-13 09:14] LABS: Alanine Aminotransferase 8 U/L (0-41); Albumin Level 4.4 g/dL (3.5-5.2); Alkaline Phosphatase 125 IU/L (40-130); Anion Gap 16.4 (5-19); Aspartate Amino Transferase 17 U/L (0-40); Blood Urea Nitrogen 13 mg/dL (8-23); Calcium 8.2 mg/dL (8.5-10.5); Carbon Dioxide 23 mmol/L (22-29); Chloride 103 mmol/L (98-107); Globulin 2.2 g/dL (1.3-4.6); Glucose 160 mg/dL (65-115); Osmolality Calculated 292 mOsm/kg (285-295); Potassium 3.4 mmol/L (3.5-5.1); Sodium 139 mmol/L (136-145); Total Bilirubin 0.2 mg/dL (0.15-1.2); Total Protein 6.6 g/dL (6.6-8.7)
[2021-03-13 09:48] LABS: Slide Review Slide Review Perform
--- NOTE | 2021-03-18 09:27 | ONC FU_ITS ---
Dr. Art follow up note Patient: Link Rollins Unit #: [id number]: [id number] Dicatated By: Kriss Art M.D.Date of Visit:Mar 13, 2021 Onc Med Follow-up/Prog Note History of Present Illness: Mr. Rollins is a 70-year-old gentleman with history of hematuria, initially observed on a day before [place] kelley, went to [facility] in [place], [place] CT scan of abdomen pelvis showed an enhancing mass in the left posterior aspect of urinary bladder consistent with bladder cancer, his CBC showed hemoglobin 13.6 and creatinine was 1.08 Subsequently, he was referred to urology, Dr. 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 Patient underwent CT scan of abdomen pelvis on December 13, 2020 which showed left double-J ureteral stent, no hydronephrosis mild left eccentric bladder wall thickening. Mild diffuse fatty infiltration of the liver. Stable fibrotic opacity right lower lobe of lung medially measuring 9 mm. Unchanged since November 06, 2020, no pelvic lymphadenopathy Past medical history significant for arthritis, chronic GERD, hypercholesterolemia, patient is a former smoker quit smoking 35 years ago denies alcohol use. He has had intermittent hematuria since underwent surgery for bladder cancer. Otherwise denies any fever chills denies any nausea or vomiting, about 10 pound weight loss due to poor appetite. No melena or hematochezia, no hemoptysis hematemesis, no jaundice, no bony pains, no dysuria. Mr Rollins reported that Dr. Centeno from [place], [place] called him and did discuss with him regarding treatment options which include radical cystectomy but prior to that he recommended chemotherapy. Echocardiogram done on January 09, 2021 showed ejection fraction 60% Mr Rollins began dose dense MVAC chemotherapy on January 27, 2021.And completed recommended 3 cycles on February 26, 2021 Came for follow-up, denies any specific complaints, except generalized weakness and fatigue but no nausea or vomiting no diarrhea or constipation, no mouth sores, no skin rash, no jaundice, no shortness of breath. Tolerated neoadjuvant chemotherapy with MVAC well, now awaiting surgical evaluation in [facility] Medications: Daily Vitamin 1 Tablet Oral daily, Gabapentin 1 Capsule (of 300 mg) Oral t.i.d., HYDROcodone-Acetaminophen 1 Tablet (of 10-325 mg) Oral four times a day, Lovastatin 1 Tablet (of 40 mg) Oral daily, Meloxicam 1 Tablet (of 15 mg) Oral daily, Omeprazole 1 Capsule (of 40 mg) Capsule Delayed Release Oral daily, Sertraline HCl 1 Tablet (of 100 mg) Oral daily, Tamsulosin HCl 1 Capsule (of 0.4 mg) Oral b.i.d. Allergies: No Known Allergies. Review of Systems: Review of Systems is not available for this patient. Vital Signs: Performed on Mar 13, 2021 09:33 Height - 71.50 in Weight - 174.4 lbs (HIGH) BSA - 2.00 sq.m BMI - 23.99 Temperature - 98.0 F (LOW) Pulse - 99 /min Respiration - 18 /min BP - 144/68 mm(hg) (HIGH) O2 Sat - 97 % Pain - 3 Fatigue - 8 Performance Status: 1 - No physically strenuous activity, but ambulatory and able to carry out light or sedentary work (e.g. office work, light house work). (ECOG) Physical Examination: ENMT - No mouth sores, no thrush, no jaundice, Respiratory - Lungs are clear to auscultation, Cardiovascular - Regular rate and rhythm of heart, Abdomen - Soft, bowel sounds present, Extremities - No visible edema. Lab/Imaging: Test performed on Feb 26, 2021 08:16 Sodium 140 mmol/L Potassium 3.8 mmol/L Chloride 106 mmol/L CO2 24 mmol/L Anion Gap 13.8 BUN 17 mg/dL Creatinine 1.1 mg/dL Cr Clearance (Est) 68.4700 mL/min Glucose 137 mg/dL Osmolality - Calculated 294 mOsm/kg Calcium 8.5 mg/dL Protein, Total 6.7 g/dL Albumin 4.3 g/dL Globulin 2.4 g/dL Bilirubin, Total 0.2 mg/dL ALT (SGPT) 12 U/L AST (SGOT) 19 U/L Alkaline Phosphatase 113 IU/L WBC 16.0 10 3/uL Manual Segs % 59 % Manual Bands % 26.0 % RBC 4.12 10 6/uL HGB 11.7 g/dL Manual Lymphs % 5 % Atypical Lymphs % 0.0 % HCT 37.4 % MCV 90.8 fL Total Cells Counted 100 Manual Monos % 5.0 % MCH 28.4 pg Manual Eos % 0 % MCHC 31.3 g/dL Manual Basos % 0.0 % RDW 16.6 % Metamyelocytes % 2.0 % Platelet Count 165 10 3/cmm MPV 9.3 fL Myelocytes % 3.0 % CBC Slide Review Slide Review Perform Polychromasia Trace Anisocytosis 1+ Platelet Estimate Normal Platelets, Giant Trace Manual Segs Abs 9.4 10/cmm Manual Bands Abs 4.2 10 3/cmm Manual Neutrophils Abs 13.6 10 3/cmm Manual Lymphocytes Abs 0.8 10 3/cmm Manual Monocytes Abs 0.8 10 3/cmm Manual Eosinophils Abs 0.0 10 3/cmm Manual Basophils Abs 0.0 10 3/cmm Test performed on Feb 20, 2021 12:05 Neutrophils (Gran) 0.81 10^9/L Lymphocytes 1.23 10^9/L Monocytes 0.40 10^9/L Eosinophils 0.01 10^9/L Basophils 0.08 10^9/L Test performed on Feb 11, 2021 08:10 Neutrophil % 67.0 % Lymphocyte % 18.8 % Monocyte % 5.1 % Eosinophil % 0.6 % Basophils % 0.7 % NRBC % 0.2 % Impression: Muscle invasive, high-grade urothelial carcinoma involving detrusor muscle, carcinoma in situ identified per TURBT done on November 28, 2020 CT scan of abdomen pelvis done on December 13, 2020 showed no abdominal or pelvic lymphadenopathy mild left central bladder wall thickening. Clinical stage T2, NX, MX Started on neoadjuvant chemotherapy with dose dense MVAC on January 27, 2021 and completed on February 26, 2021 Stable fibrotic opacity right lower lobe of lung medially measuring 9 mm Arthritis GERD Plan: Discussed with patient regarding his labs white blood count 20.5 hemoglobin 10.7 hematocrit 34.5 platelets 179,000 CMP within normal limit except potassium 3.4 Clinically, patient doing reasonably well, now has completed recommended 3 doses of MVAC in dose dense fashion with Neulasta support, has tolerated well but with expected side effects e.g. generalized weakness and fatigue, mild progressive anemia. His leukocytosis is most likely due to Neulasta, as patient has no signs symptom suggestive of infection. As per his mild drop in his hemoglobin is concerned probably due to chemotherapy related bone marrow suppression, will continue to monitor, if there is a further drop, may consider anemia work-up As far as mild hypokalemia is concerned, will consider potassium supplement Patient was scheduled see Dr. Centeno in [facility] for post neoadjuvant chemotherapy surgical evaluation, as per patient and Dr. Centeno is not available due to some family emergency but another physician is taking over the case and they want to know more about her before the consider surgery, patient was advised to discuss with Dr. Rossi, as he may know more about this new physician and will guide him in proper direction. Patient will return to clinic 2 weeks after surgery with CBC CMP Signed By: Kriss Art M.D. <<Signature on File>>
== END 2021-03-13 06:09 | disposition home or self-care (01) ==
LOC: ONCMED 06:10
PROVIDERS: PCP Family Medicine; Visit Provider Internal Medicine Hematology & Oncology
DX: C68.8 Malignant neoplasm of overlapping sites of urinary organs (principal); C78.01 Secondary malignant neoplasm of right lung; C77.8 Secondary and unspecified malignant neoplasm of lymph nodes of multiple regions; D70.1 Agranulocytosis secondary to cancer chemotherapy; T45.1X5A Adverse effect of antineoplastic and immunosuppressive drugs, initial encounter; M19.90 Unspecified osteoarthritis, unspecified site; K21.9 Gastro-esophageal reflux disease without esophagitis; Z79.899 Other long term (current) drug therapy; Z92.21 Personal history of antineoplastic chemotherapy
CPT/HCPCS: 36415; 80053; 85025; 99214

== ENCOUNTER 2022-01-06 10:28 | Outpatient (RCR) | payer MEDICARE, BC, SELFPAY | END 2022-01-12 23:59 | disposition home or self-care (01) | LOC: SPT 10:28 | PROVIDERS: PCP Family Medicine; Referring Provider Family Medicine; Visit Provider Family Medicine | DX: M51.36 Other intervertebral disc degeneration, lumbar region (principal) | CPT/HCPCS: 97161 ==

== ENCOUNTER 2022-01-13 06:00 | Outpatient (RCR) | payer MEDICARE, BC, SELFPAY | END 2022-02-12 23:59 | disposition home or self-care (01) | LOC: SPT 06:00 | PROVIDERS: PCP Family Medicine; Referring Provider Family Medicine; Visit Provider Family Medicine | DX: M51.36 Other intervertebral disc degeneration, lumbar region (principal) | CPT/HCPCS: 97032; 97110 ==

== ENCOUNTER 2022-01-28 08:45 | Outpatient (CLI) | payer MEDICARE, BC, SELFPAY ==
[2022-01-28 09:51] LABS: Basophils # 0.1 10^3/uL (0.0-0.1); Eosinophils # 0.2 10^3/uL (0.0-0.8); Eosinophils % 3.7 %; Hematocrit 35.9 % (42.0-52.0); Hemoglobin 10.7 g/dL (11.7-16.6); Lymphocytes # 1.6 10^3/uL (0.8-4.8); Mean Corpuscular HGB Conc 29.8 g/dL (30.0-36.0); Mean Corpuscular Hemoglobin 25.7 pg (28.0-34.0); Mean Corpuscular Volume 86.1 fl (80-94); Mean Platelet Volume 8.8 fL (7.4-10.4); Monocytes # 0.5 10^3/uL (0.2-0.9); Monocytes % 9.3 %; Neutrophils # 2.59 10^3/uL (1.8-7.7); Neutrophils % 53.6 %; Nucleated Red Blood Cells % 0 %; Platelet Count 201 10^3/cmm (130-400); Red Blood Count 4.17 10^6/uL (4.1-5.3); Red Cell Distribution Width 16.6 % (12.1-15.1); White Blood Count 4.8 10^3/uL (4.0-10.0)
[2022-01-28 10:16] LABS: Alanine Aminotransferase 14 U/L (0-41); Albumin Level 4.7 g/dL (3.5-5.2); Alkaline Phosphatase 69 IU/L (40-130); Anion Gap 16.2 (5-19); Aspartate Amino Transferase 17 U/L (0-40); Blood Urea Nitrogen 26 mg/dL (8-23); Calcium 9.2 mg/dL (8.5-10.5); Carbon Dioxide 21 mmol/L (22-29); Chloride 105 mmol/L (98-107); Globulin 2.3 g/dL (1.3-4.6); Glucose 136 mg/dL (65-115); Osmolality Calculated 293 mOsm/kg (285-295); Potassium 4.2 mmol/L (3.5-5.1); Sodium 138 mmol/L (136-145); Total Bilirubin 0.2 mg/dL (0.15-1.2)
[2022-01-28 11:39] LABS: Reticulocyte % 1.1 % (0.5-2.0)
[2022-01-28 11:52] LABS: Ferritin 14 ng/mL (30-400); Iron 51 ug/dL (59-158); Percent Saturation 13.6 % (20-50); Total Iron Binding Capacity 375 mcg/dl; Unsaturated Iron Binding 324 ug/dL (112-347)
[2022-01-28 12:08] LABS: Vitamin B12 303 pg/mL (232-1245)
--- NOTE | 2022-01-31 13:34 | ONC FU_ITS ---
Dr. Art follow up note Patient: Link Rollins Unit #: [id number]: 1950 Dicatated By: Kriss Art M.D.Date of Visit:Jan 28, 2022 Onc Med Follow-up/Prog Note History of Present Illness: Mr. Rollins is a 71-year-old gentleman with history of hematuria, initially observed on a day before [place] kelley, went to [facility] in [place], [place] CT scan of abdomen pelvis showed an enhancing mass in the left posterior aspect of urinary bladder consistent with bladder cancer, his CBC showed hemoglobin 13.6 and creatinine was 1.08 Subsequently, he was referred to urology, Dr. 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 Patient underwent CT scan of abdomen pelvis on December 13, 2020 which showed left double-J ureteral stent, no hydronephrosis mild left eccentric bladder wall thickening. Mild diffuse fatty infiltration of the liver. Stable fibrotic opacity right lower lobe of lung medially measuring 9 mm. Unchanged since November 06, 2020, no pelvic lymphadenopathy Past medical history significant for arthritis, chronic GERD, hypercholesterolemia, patient is a former smoker quit smoking 35 years ago denies alcohol use. He has had intermittent hematuria since underwent surgery for bladder cancer. Otherwise denies any fever chills denies any nausea or vomiting, about 10 pound weight loss due to poor appetite. No melena or hematochezia, no hemoptysis hematemesis, no jaundice, no bony pains, no dysuria. Mr Rollins reported that Dr. Centeno from [place], [place] called him and did discuss with him regarding treatment options which include radical cystectomy but prior to that he recommended chemotherapy. Echocardiogram done on January 09, 2021 showed ejection fraction 60% Mr Rollins began dose dense MVAC chemotherapy on January 27, 2021.And completed recommended 3 cycles on February 26, 2021, Patient was supposed to return to clinic 2 weeks after his cystectomy, as per patient Dr. Centeno, urologist in [place], was not available due to personal reason so Dr. Joelle Malik, urologist in Dr. Centeno's group did the surgery on April 08, 2021, and he was told there was no evidence of residual disease, he has been seeing her every 3 months since then and scheduled to see her on February 12, 2022, as per patient in June 2021 he underwent coronary artery stenting for 'heart attack'. Because of chronic back pain, his physician in [place] recommended MRI scan of back and our office was requested to order, which was done in October 2021 which showed no significant osseous or adjacent soft tissue abnormality in spine, multilevel endplate degenerative changes. Mild disc bulge at L1-L2. Mild degenerative changes at T7-T8 with mild right foraminal narrowing and right paracentral extruded disc at L5-S1 compressing the right S1 nerve root. Borderline mass-effect on the left S1 nerve root. Came for follow-up, denies any specific complaints, except chronic back pain, no lower extremity numbness or weakness, no fever chills, no nausea or vomiting, no diarrhea or constipation, Appetite is good, no weight loss. No hematuria, urinary conduit functioning fine Medications: Daily Vitamin 1 Tablet Oral daily, Gabapentin 1 Capsule (of 300 mg) Oral t.i.d., HYDROcodone-Acetaminophen 1 Tablet (of 10-325 mg) Oral four times a day, Lovastatin 1 Tablet (of 40 mg) Oral daily, Meloxicam 1 Tablet (of 15 mg) Oral daily, Omeprazole 1 Capsule (of 40 mg) Capsule Delayed Release Oral daily, Sertraline HCl 1 Tablet (of 100 mg) Oral daily, Tamsulosin HCl 1 Capsule (of 0.4 mg) Oral b.i.d. Allergies: shellfish Review of Systems: Review of Systems is not available for this patient. Vital Signs: Performed on Jan 28, 2022 10:48 Height - 71.50 in Weight - 176.0 lbs (HIGH) BSA - 2.01 sq.m BMI - 24.21 Temperature - 98.1 F (LOW) Pulse - 70 /min Respiration - 16 /min BP - 110/63 mm(hg) O2 Sat - 98 % Pain - 6 Fatigue - 6 Performance Status: 0 - Fully active, able to carry on all predisease activities without restrictions. (ECOG) Physical Examination: ENMT - No mouth sores, no thrush, no jaundice, Respiratory - Lungs are clear to auscultation, Cardiovascular - Regular rate and rhythm of heart, Abdomen - Soft, bowel sounds present, Urinary conduit functioning fine, Extremities - No visible edema. Lab/Imaging: Most recent lab results are not available for this patient. Impression: Muscle invasive, high-grade urothelial carcinoma involving detrusor muscle, carcinoma in situ identified per TURBT done on November 28, 2020 CT scan of abdomen pelvis done on December 13, 2020 showed no abdominal or pelvic lymphadenopathy mild left central bladder wall thickening. Clinical stage T2, NX, MX Started on neoadjuvant chemotherapy with dose dense MVAC on January 27, 2021 and completed on February 26, 2021, Followed by radical cystectomy with urinary conduit on April 08, 2021, since then followed by urology in [facility] Stable fibrotic opacity right lower lobe of lung medially measuring 9 mm Arthritis GERD Plan: Discussed with patient regarding his labs white blood count 4.8 hemoglobin 10.7 hematocrit 35.9 platelets 201,000 CMP within normal limit except creatinine 1.6 compared to 0.9 previously Clinically, patient is doing reasonably well with no new signs symptoms suggestive of recurrence of disease, now being followed by Dr. Joelle Malik, urologist in [facility]. Patient lost follow-up after his neoadjuvant chemotherapy until today and his lab work-up shows persistent mild anemia, will consider anemia work-up including iron studies B12 folic acid level and reticulocyte count and then he will return to clinic in 1 month with CBC As far as bladder cancer is concerned, no signs symptom suggestive of recurrence of disease, as mentioned above he has been followed by urologist in [place] and scheduled to see her on February 12, 2022. As far as lower back pain is concerned, his MRI scan done in October 2021 showed degenerative/disc disease, will refer him to Dr. Arrington orthopedics for evaluation His lab work-up shows mild renal insufficiency, will refer him to nephrology. Return to clinic in 1 month with CBC Signed By: Kriss Art M.D. <<Signature on File>>
== END 2022-01-28 08:46 | disposition home or self-care (01) ==
PROVIDERS: PCP Family Medicine; Visit Provider Internal Medicine Hematology & Oncology
DX: D09.0 Carcinoma in situ of bladder (principal); D50.8 Other iron deficiency anemias; K21.9 Gastro-esophageal reflux disease without esophagitis; R91.8 Other nonspecific abnormal finding of lung field; N28.9 Disorder of kidney and ureter, unspecified; Z79.899 Other long term (current) drug therapy
CPT/HCPCS: 36415; 80053; 82607; 82728; 83540; 83550; 85025; 85045; 99214

== ENCOUNTER 2022-02-26 09:35 | Outpatient (CLI) | payer MEDICARE, BC, SELFPAY ==
[2022-02-26 10:06] LABS: Basophils # 0.1 10^3/uL (0.0-0.1); Basophils % 1.5 %; Eosinophils # 0.2 10^3/uL (0.0-0.8); Eosinophils % 2.4 %; Hematocrit 37.1 % (42.0-52.0); Hemoglobin 11.3 g/dL (11.7-16.6); Lymphocytes # 1.4 10^3/uL (0.8-4.8); Lymphocytes % 22.2 %; Mean Corpuscular HGB Conc 30.5 g/dL (30.0-36.0); Mean Corpuscular Hemoglobin 25.9 pg (28.0-34.0); Mean Corpuscular Volume 84.9 fl (80-94); Mean Platelet Volume 8.6 fL (7.4-10.4); Monocytes # 0.5 10^3/uL (0.2-0.9); Monocytes % 7.9 %; Neutrophils # 4.05 10^3/uL (1.8-7.7); Neutrophils % 65.5 %; Nucleated Red Blood Cells % 0 %; Platelet Count 243 10^3/cmm (130-400); Red Blood Count 4.37 10^6/uL (4.1-5.3); Red Cell Distribution Width 16.2 % (12.1-15.1); White Blood Count 6.2 10^3/uL (4.0-10.0)
[2022-02-26 10:22] LABS: Alanine Aminotransferase 13 U/L (0-41); Albumin Level 4.5 g/dL (3.5-5.2); Alkaline Phosphatase 66 IU/L (40-130); Aspartate Amino Transferase 20 U/L (0-40); Blood Urea Nitrogen 26 mg/dL (8-23); Calcium 9.2 mg/dL (8.5-10.5); Carbon Dioxide 23 mmol/L (22-29); Chloride 103 mmol/L (98-107); Globulin 2.6 g/dL (1.3-4.6); Glucose 102 mg/dL (65-115); Osmolality Calculated 289 mOsm/kg (285-295); Sodium 137 mmol/L (136-145); Total Bilirubin 0.3 mg/dL (0.15-1.2); Total Protein 7.1 g/dL (6.6-8.7)
[2022-02-26 10:26] LABS: Anion Gap 15.3 (5-19); Potassium 4.3 mmol/L (3.5-5.1)
--- NOTE | 2022-02-26 17:05 | ONC FU_ITS ---
Dr. Art follow up note Patient: iLnk Rollins Unit #: [id number]: [id number] Dicatated By: Kriss Art M.D.Date of Visit:Feb 26, 2022 Onc Med Follow-up/Prog Note History of Present Illness: Mr. Rollins is a 71-year-old gentleman with history of hematuria, initially observed on a day before [facility], went to [facility] in [place], [place] CT scan of abdomen pelvis showed an enhancing mass in the left posterior aspect of urinary bladder consistent with bladder cancer, his CBC showed hemoglobin 13.6 and creatinine was 1.08 Subsequently, he was referred to urology, Dr. 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 Patient underwent CT scan of abdomen pelvis on December 13, 2020 which showed left double-J ureteral stent, no hydronephrosis mild left eccentric bladder wall thickening. Mild diffuse fatty infiltration of the liver. Stable fibrotic opacity right lower lobe of lung medially measuring 9 mm. Unchanged since November 06, 2020, no pelvic lymphadenopathy Past medical history significant for arthritis, chronic GERD, hypercholesterolemia, patient is a former smoker quit smoking 35 years ago denies alcohol use. He has had intermittent hematuria since underwent surgery for bladder cancer. Otherwise denies any fever chills denies any nausea or vomiting, about 10 pound weight loss due to poor appetite. No melena or hematochezia, no hemoptysis hematemesis, no jaundice, no bony pains, no dysuria. Mr Rollins reported that Dr. Centeno from [place], [place] called him and did discuss with him regarding treatment options which include radical cystectomy but prior to that he recommended chemotherapy. Echocardiogram done on January 09, 2021 showed ejection fraction 60% Mr Rollins began dose dense MVAC chemotherapy on January 27, 2021.And completed recommended 3 cycles on February 26, 2021, Patient was supposed to return to clinic 2 weeks after his cystectomy, as per patient Dr. Centeno, urologist in [place], was not available due to personal reason so Dr. Joelle Malik, urologist in Dr. Centeno's group did the surgery on April 08, 2021, and he was told there was no evidence of residual disease, he has been seeing her every 3 months since then and scheduled to see her on February 12, 2022, as per patient in June 2021 he underwent coronary artery stenting for 'heart attack'. Because of chronic back pain, his physician in [place] recommended MRI scan of back and our office was requested to order, which was done in October 2021 which showed no significant osseous or adjacent soft tissue abnormality in spine, multilevel endplate degenerative changes. Mild disc bulge at L1-L2. Mild degenerative changes at T7-T8 with mild right foraminal narrowing and right paracentral extruded disc at L5-S1 compressing the right S1 nerve root. Borderline mass-effect on the left S1 nerve root. Came for follow-up, denies any specific complaints, no fever or chills, no nausea or vomiting, no diarrhea or constipation, no melena medic easier, no hematuria or dysuria, patient has seen nephrology, as well as orthopedics, he is very pleased with the evaluation. Appetite is good, weight is stable, as per patient he is moving down to [facility] in about 2 weeks and he will find his new physician there Medications: Cranberry 1 Capsule Oral daily, Daily Vitamin 1 Tablet Oral daily, Gabapentin 1 Capsule (of 300 mg) Oral t.i.d., HYDROcodone-Acetaminophen 1 Tablet (of 10-325 mg) Oral four times a day, Lovastatin 1 Tablet (of 40 mg) Oral daily, Omeprazole 1 Capsule (of 40 mg) Capsule Delayed Release Oral daily, Sertraline HCl 1 Tablet (of 100 mg) Oral daily, Tamsulosin HCl 1 Capsule (of 0.4 mg) Oral b.i.d. Allergies: shellfish Review of Systems: Review of Systems is not available for this patient. Vital Signs: Performed on Feb 26, 2022 11:18 Height - 71.50 in Weight - 172.6 lbs (LOW) BSA - 1.99 sq.m BMI - 23.74 Temperature - 97.0 F (LOW) Pulse - 69 /min Respiration - 18 /min BP - 121/67 mm(hg) O2 Sat - 97 % Pain - 0 Fatigue - 4 Performance Status: 0 - Fully active, able to carry on all predisease activities without restrictions. (ECOG) Physical Examination: ENMT - No mouth sores, no thrush, no jaundice, Respiratory - Lungs are clear to auscultation, Cardiovascular - Regular rate and rhythm of heart, Abdomen - Soft, bowel sounds present, Extremities - No visible edema. Lab/Imaging: Most recent lab results are not available for this patient. Impression: Muscle invasive, high-grade urothelial carcinoma involving detrusor muscle, carcinoma in situ identified per TURBT done on November 28, 2020 CT scan of abdomen pelvis done on December 13, 2020 showed no abdominal or pelvic lymphadenopathy mild left central bladder wall thickening. Clinical stage T2, NX, MX Started on neoadjuvant chemotherapy with dose dense MVAC on January 27, 2021 and completed on February 26, 2021, Followed by radical cystectomy with urinary conduit on April 08, 2021, since then followed by urology in [facility] Stable fibrotic opacity right lower lobe of lung medially measuring 9 mm Arthritis GERD Plan: Discussed with patient regarding his labs White blood count 6.2 hemoglobin 11.3 g compared to 10.7 on January 28, 2022 MCV 84.9 hematocrit 37.1 platelets 243,000 CMP within normal limit except creatinine 1.3 compared to 1.6 previously iron studies shows ferritin 14 iron saturation 13.6 iron 51 TIBC 375 B12 303 Clinically, patient doing well with no new signs symptoms just of recurrence of disease, his lab work-up shows improvement in his hemoglobin but anemia work-up confirmed iron deficiency and B12 also on the low side of normal, patient was advised to try oral iron ferrous sulfate 325 mg p.o. daily along with vitamin B12 supplement and then monitor with CBC and iron studies but patient is moving down to [place], he will find new oncologist there and we will send his records and recommendations once asked for. Mild renal insufficiency, no improvement, patient has seen nephrology, as per patient no new recommendations other than observation. He has also seen orthopedics for lower back pain. Signed By: Kriss Art M.D. <<Signature on File>>
== END 2022-02-26 09:36 | disposition home or self-care (01) ==
LOC: ONCMED 09:37
PROVIDERS: PCP Family Medicine; Visit Provider Internal Medicine Hematology & Oncology
DX: C67.8 Malignant neoplasm of overlapping sites of bladder (principal); D09.0 Carcinoma in situ of bladder; J84.10 Pulmonary fibrosis, unspecified; Z87.891 Personal history of nicotine dependence; M19.90 Unspecified osteoarthritis, unspecified site; K21.9 Gastro-esophageal reflux disease without esophagitis; D50.9 Iron deficiency anemia, unspecified; E53.8 Deficiency of other specified B group vitamins; N28.9 Disorder of kidney and ureter, unspecified
CPT/HCPCS: 36415; 80053; 85025; 99214